=== PATIENT | female | born 1940 | race Caucasian/White ===

== ENCOUNTER 2018-02-07 10:54 | Inpatient (IN) ==
[2018-02-07] MEDS ORDERED: Sod Chloride 0.9% Inj 1,000 ML IV.CONT SCH (11:45)
[2018-02-07 12:04] LABS: Baso % (Auto) 0.2 % (0.0-2.0); Eos # (Auto) 0.2 th/mm3 (0.0-0.4); Eos % (Auto) 0.8 % (0.0-4.0); Hematocrit 35.6 % (35.0-46.0); Hemoglobin 11.6 gm/dL (11.6-15.3); Lymph # (Auto) 2.3 th/mm3 (1.0-4.8); Lymph % (Auto) 11.8 % (9.0-44.0); Mean Corpuscular HGB Conc 32.7 % (32.0-36.0); Mean Corpuscular Volume 82.5 fL (80.0-100.0); Mean Platelet Volume 8.4 fL (7.0-11.0); Mono # (Auto) 1.2 th/mm3 (0.0-0.9); Neut # (Auto) 15.9 th/mm3 (1.8-7.7); Neut % (Auto) 81.2 % (16.0-70.0); Platelet Count 273 th/mm3 (150-450); Red Blood Count 4.31 mil/mm3 (4.00-5.30); Red Cell Distribution Width 14.2 % (11.6-17.2); White Blood Count 19.6 th/mm3 (4.0-11.0)
[2018-02-07 12:17] LABS: Activated Partial Thrombo Time 28.1 sec (24.3-30.1); INR 1.1 Ratio; Prothrombin Time 11.3 sec (9.8-11.6)
[2018-02-07 12:37] LABS: Albumin 3.3 g/dL (3.4-5.0); Anion Gap 8 meq/L (5-15); Aspartate Aminotransferase 56 U/L (15-37); Blood Urea Nitrogen 33 mg/dL (7-18); Calcium 8.7 mg/dL (8.5-10.1); Carbon Dioxide 27.8 meq/L (21.0-32.0); Chloride 102 meq/L (98-107); Glomerular Filtration Rate 21 mL/min (>89); Glucose,Random 95 mg/dL (74-106); Potassium 4.4 meq/L (3.5-5.1); Sodium 138 meq/L (136-145)
[2018-02-07 12:38] LABS: Alanine Aminotransferase 27 U/L (10-53)
--- NOTE | 2018-02-07 12:51 | CT ---
EXAM DATE: 02/07/2018 12:41 PM EDT AGE/SEX: 78 years / Female INDICATIONS: Fall today, pain and some neuro deficits CLINICAL DATA: This is the patient's initial encounter. Patient reports that signs and symptoms have been present for 1 day and indicates a pain score of 6/10. MEDICAL/SURGICAL HISTORY: None. . cervical spine RADIATION DOSE: 56.35 CTDI (mGy) COMPARISON: No prior exams available for comparison. TECHNIQUE: CT of the head without contrast. Using automated exposure control and adjustment of the mA and/or kV according to patient size, radiation dose was kept as low as reasonably achievable to ob tain optimal diagnostic quality images. DICOM format image data is available electronically for revi ew and comparison. FINDINGS: Cerebrum: The ventricles are normal for age. There is mild decreased density in the cerebral white matter. No evidence of midline shift, mass lesion, hemorrhage or acute infarction. No extraaxial flu id collections are seen. Posterior Fossa: The cerebellum and brainstem are intact. The 4th ventricle is midline. The cerebe llopontine angle is unremarkable. Extracranial: The visualized portion of the orbits is intact. Skull: The calvaria is intact. No evidence of skull fracture. CONCLUSION: 1. No acute abnormality is seen. 2. Mild decreased density in the periventricular white matter likely secondary to small vessel ische bhupinder change. . Electronically signed by: Fer Miarnda MD 02/07/2018 12:49 PM EDT
[2018-02-07 12:52] LABS: Alkaline Phosphatase 104 U/L (45-117); Creatine Kinase 1915 U/L (26-192); Total Protein 6.8 g/dL (6.4-8.2)
[2018-02-07 13:05] LABS: CKMB Percent 1.4 % (0.0-4.0); Creatine Kinase MB 27.5 ng/mL (0.5-3.6)
[2018-02-07] MEDS ORDERED: Sodium Chlor 0.9% Inj 500 ML IV.SIG ONE (13:14)
--- NOTE | 2018-02-07 13:18 | XR ---
EXAM DATE: 02/07/2018 1:14 PM EDT AGE/SEX: 78 years / Female INDICATIONS: Cough. CLINICAL DATA: This is the patient's initial encounter. Patient reports that signs and symptoms have been present for 1 day and indicates a pain score of 2/10. MEDICAL/SURGICAL HISTORY: None. None. COMPARISON: No prior exams available for comparison. FINDINGS: Cardiomegaly. No consolidation. ACDF hardware overlies the cervical spine. No effusion. There is a po ssibly cavitary lesion in the left lung base measuring 3.2 cm in transverse dimension. CONCLUSION: Left lung nodule possibly cavitary. CT chest recommended. Electronically signed by: Tejas Crook MD 02/07/2018 1:16 PM EDT
--- NOTE | 2018-02-07 13:19 | CT ---
EXAM DATE: 02/07/2018 1:04 PM EDT AGE/SEX: 78 years / Female INDICATIONS: Fall today,pain,neuro deficits CLINICAL DATA: This is the patient's initial encounter. Patient reports that signs and symptoms have been present for 1 day and indicates a pain score of 6/10. MEDICAL/SURGICAL HISTORY: . degenerative disc disease . cervical spine RADIATION DOSE: 19.98 CTDI (mGy) COMPARISON: No prior exams available for comparison. TECHNIQUE: Contiguous axial images were obtained using helical multirow detector technique. The vol umetric data was post-processed with multiplanar reconstruction in oblique axial, sagittal, and coron al planes. Using automated exposure control and adjustment of the mA and/or kV according to patient s ize, radiation dose was kept as low as reasonably achievable to obtain optimal diagnostic quality sue ges. DICOM format image data is available electronically for review and comparison. FINDINGS: Sagittal and coronal reformats are provided. These demonstrate previous anterior cervical fusion from C5 down to T1. The fusion appears solid. The plate is intact. There are severe degenerative changes at C2/3, C3/4 and C4/5. The overall alignment of the cervical spine is adequate. No definite fracture is seen. C1-2: There are moderate degenerative changes in the atlantodens joint. No acute fractures seen. C2-3: There is a degenerated disc with mild osteophytic ridging. The thecal space is adequate. There is mild bony foraminal narrowing on the left. This is predominantly from the osteophytic ridging of t he vertebral endplates and degenerative facet arthritis. The foraminal on the right appears adequate. C3-4 There is a degenerated disc. There is broad-based disc bulge and extensive osteophytic ridging. This effaces the ventral thecal sac. There is mild bony foraminal narrowing as well. There is mild fa cet arthritis bilaterally. C4-5: There is moderate osteophytic ridging and advanced facet arthritis bilaterally. This results in mild narrowing of the thecal sac and mild bilateral bony foraminal narrowing. C5-6: This level is fused. The thecal space is adequate. There is moderate bony foraminal narrowing b ilaterally. C6-7: This level is fused. The thecal space and foramina appear adequate. C7-T1: This level is fused. The thecal space and foramina appear adequate CONCLUSION: 1. The patient is fused from C5 down to T1. The fusion is solid. 2. Severe degenerative changes at C2/3, C3/4 and C4/5. 3. Moderate degenerative changes in the atlantodens joint. 4. No acute cervical fracture identified. Electronically signed by: Dave Walter MD 02/07/2018 1:17 PM EDT
[2018-02-07 13:48] LABS: Bacteria,Urine Occasional /hpf; Bilirubin,Urine Negative (Negative); Clarity,Urine Hazy (Clear); Color,Urine Yellow (Yellw/Straw); Glucose,Urine (UA) Negative (Negative); Hyaline Casts,Urine 19 /lpf (0-3); Leukocyte Esterase,Urine Negative (Negative); Nitrite,Urine Negative (Negative); Specific Gravity,Urine 1.013 (1.002-1.035); Squamous Epithelial Cell,Urine <1 /hpf (0-5)
[2018-02-07] MEDS: Sod Chloride 0.9% Inj 1,000 ML IV.CONT SCH (14:04)
--- NOTE | 2018-02-07 15:29 | ED ---
HPI General Chief Complaint: Neuro Symptoms/Deficit Stated Complaint: medical Time Seen by Provider: 02/07/18 11:31 History of Present Illness HPI Narrative: This is a 78-year-old female with history of cervical spine disease, who presents here today after experiencing left-sided facial droop, left upper and left lower extremity weakness starting at noon yesterday. According to the paramedics and the patient, she started experiencing a headache followed by the neuro symptoms. Noon yesterday. She reportedly fell and struck her head and passed out. Patient reports pain still at the top of her head. She reports difficulty swallowing as well as slurred speech. She also reports weakness in her left upper and left lower extremity. Patient reports pain in her left arm that she describes as an electrical type pain. She denies any urinary incontinence. The patient does report that a couple years ago she had a TIA. When asked if they were able to find the cause, she was unable to tell me. She is certainly out of the window for TPA. She is still symptomatic and therefore a CVA workup will be initiated. Related Data Home Medications Medication Instructions Recorded Confirmed morphine 15 mg PO Q12H 02/07/18 02/07/18 sertraline 100 mg PO DAILY 02/07/18 02/07/18 Allergies Allergy/AdvReac Type Severity Reaction Status Date / Time latex Allergy Severe Rash Verified 02/07/18 11:11 acyclovir Allergy Mild RASH Verified 02/07/18 11:11 bacitracin Allergy Mild RASH Verified 02/07/18 11:11 gramicidin D Allergy Mild RASH Verified 02/07/18 11:11 neomycin Allergy Mild RASH Verified 02/07/18 11:11 polymyxin B Allergy Mild RASH Verified 02/07/18 11:11 Review of Systems Except as stated in HPI: all other systems reviewed are negative Constitutional Denies chills and Denies fever(s) Eyes Denies blurry vision, Denies diplopia, Denies loss of peripheral vision and Denies loss of vision ENT Reports dysphagia and Reports other (Left facial droop) Cardiovascular Denies chest pain and Denies dyspnea Respiratory Denies chest congestion, Denies cough and Denies dyspnea on exertion Gastrointestinal Denies abdominal pain, Denies nausea and Denies vomiting Genitourinary Denies urinary frequency, Denies dysuria and Denies urinary incontinence Musculoskeletal Reports neck pain (Chronic) and Reports other (Chronic neck pain) Integumentary/Breasts Reports system reviewed and no additional complaints, except [facility] Neurologic Reports abnormal speech, Reports headache(s), Reports focal weakness (Left upper and left lower) and Denies seizure-like activity Psychiatric Reports system reviewed and no additional complaints, except as [facility] Medical History Medical History Chronic back pain (Acute) Degenerative disc disease, cervical (Acute) Frequent UTI (Acute) Surgical History Surgical History History of back surgery (Acute) History of cholecystectomy (Acute) Hx of fusion of cervical spine (Acute) Social History Social History Substance History: No History of Abuse Smoking Status: Never smoker How Often Do You Have a Drink Containing Alcohol: Never Recent Travel in [facility] within the Last 8 Weeks: No Recent Out of Country Travel within the Last 8 Weeks: No Immunization History Tetanus Immunization: Unsure Hx Influenza Vaccine This Season: Unable to Assess Exam Narrative Exam Narrative: GENERAL: Well-developed well-nourished female in c-collar immobilization. SKIN: Focused skin assessment warm/dry. HEAD: Atraumatic. Normocephalic. EYES: Pupils equal and round. No scleral icterus. No injection or drainage. ENT: No nasal bleeding or discharge. Mucous membranes pink and moist. NECK: Trachea midline. In c-collar mobilization. CARDIOVASCULAR: Regular rate and rhythm. No murmur appreciated. RESPIRATORY: No accessory muscle use. Clear to auscultation. Breath sounds equal bilaterally. GASTROINTESTINAL: Abdomen soft, non-tender, nondistended. MUSCULOSKELETAL: No obvious deformities. No clubbing. No cyanosis. No edema. NEUROLOGICAL: Awake and alert. Positive slurred speech. Left-sided upper and lower facial droop. 3/4 out of 5 left upper extremity strength. 4 out of 5 left lower extremity strength. No downgoing Babinski's. Right upper and right lower extremity was 5 out of 5 strength. Course Initial Documented Vital Signs Pulse Rate 88 02/07/18 10:56 Respiratory Rate 18 02/07/18 10:56 Blood Pressure 113/78 02/07/18 10:56 Pulse Oximetry 97 02/07/18 10:56 Last Documented Vital Signs Pulse Rate 90 02/07/18 14:30 Respiratory Rate 18 02/07/18 14:30 Blood Pressure 135/74 02/07/18 14:30 Pulse Oximetry 97 07/30/18 14:30 Medical Decision Making [facility] Narrative Medical decision making narrative: 78-year-old female with history of cervical spine disease, previous fusion, presents after having an episode yesterday at noon of headache followed by left-sided facial droop, dysarthria, left upper and left lower extremity weakness. The patient reportedly fell and struck her head. There was loss of consciousness. CT of the brain shows no evidence of acute intracranial abnormalities. Patient's creatinine is elevated above 2. She has no reported history of kidney insufficiency. Patient's chest x-ray also shows a left lower lung cavitary lesion. The patient states that she smoked in her early years however has not had any tobacco use in several years. The [facility] above [facility]. The patient will be placed on telemetry floor. MRI of the brain is pending at this time. Differential Diagnosis Differential Diagnosis: CVA versus radiculopathy versus metabolic derangement versus pulmonary infection versus neoplastic process. Lab Data Result diagrams: 02/07/18 11:47 02/07/18 11:47 Lab Results 02/07/18 02/07/18 02/07/18 Range/Units 11:47 11:47 11:47 WBC 19.6 H (4.0-11.0) th/mm3 RBC 4.31 (4.00-5.30) mil/mm3 Hgb 11.6 (11.6-15.3) gm/dL Hct 35.6 (35.0-46.0) % MCV 82.5 (80.0-100.0) fL MCH 27.0 (27.0-34.0) pg MCHC 32.7 (32.0-36.0) % RDW 14.2 (11.6-17.2) % Plt Count 273 (150-450) th/mm3 MPV 8.4 (7.0-11.0) fL Neut % (Auto) 81.2 H (16.0-70.0) % Lymph % (Auto) 11.8 (9.0-44.0) % [place] % (Auto) 6.0 (0.0-8.0) % Eos % (Auto) 0.8 (0.0-4.0) % Baso % (Auto) 0.2 (0.0-2.0) % Neut # (Auto) 15.9 H (1.8-7.7) th/mm3 Lymph # (Auto) 2.3 (1.0-4.8) th/mm3 [place] # (Auto) 1.2 H (0.0-0.9) th/mm3 Eos # (Auto) 0.2 (0.0-0.4) th/mm3 Baso # (Auto) 0.0 (0.0-0.2) th/mm3 WBC Differential . Differential Comment Auto diff final PT 11.3 (9.8-11.6) sec INR 1.1 Ratio APTT 28.1 (24.3-30.1) sec Sodium 138 (136-145) meq/L Potassium 4.4 (3.5-5.1) meq/L Chloride 102 (98-107) meq/L Carbon Dioxide 27.8 (21.0-32.0) meq/L Anion Gap 8 (5-15) meq/L BUN 33 H (7-18) mg/dL Creatinine 2.27 H (0.50-1.00) mg/dL Estimated GFR 21 L (>89) mL/min Random Glucose 95 (74-106) mg/dL Calcium 8.7 (8.5-10.1) mg/dL Total Bilirubin 0.4 (0.2-1.0) mg/dL AST 56 H (15-37) U/L ALT 27 (10-53) U/L Alkaline Phosphatase 104 (45-117) U/L Total Creatine Kinase 1915 H (26-192) U/L CK-MB (CK-2) 27.5 H (0.5-3.6) ng/mL CK-MB (CK-2) % 1.4 (0.0-4.0) % Troponin I Less than 0.02 L (0.02-0.05) ng/mL Total Protein 6.8 (6.4-8.2) g/dL Albumin 3.3 L (3.4-5.0) g/dL Urine Color (Yellw/Straw) Urine Clarity (Clear) Urine pH (5.0-8.5) Ur Specific [place] (1.002-1.035) Urine Protein (Neg-Trace) mg/dL Urine Glucose (UA) (Negative) mg/dL Urine Ketones (Negative) mg/dL Urine Occult Blood (Negative) Urine Nitrate (Negative) Urine Bilirubin (Negative) Urine Urobilinogen (Less than 2) mg/dL Ur Leukocyte Esterase (Negative) Urine RBC (0-3) /hpf Urine WBC (0-5) /hpf Ur Squamous Epith Cells (0-5) /hpf Urine Bacteria (None) /hpf Hyaline Casts (0-3) /lpf Micro UA Comment Urine Culture Comments Blood Type Blood Type Recheck Antibody Screen 02/07/18 02/07/18 Range/Units 11:47 13:17 WBC (4.0-11.0) th/mm3 RBC (4.00-5.30) mil/mm3 Hgb (11.6-15.3) gm/dL Hct (35.0-46.0) % MCV (80.0-100.0) fL MCH (27.0-34.0) pg MCHC (32.0-36.0) % RDW (11.6-17.2) % Plt Count (150-450) th/mm3 MPV (7.0-11.0) fL Neut % (Auto) (16.0-70.0) % Lymph % (Auto) (9.0-44.0) % [place] % (Auto) (0.0-8.0) % Eos % (Auto) (0.0-4.0) % Baso % (Auto) (0.0-2.0) % Neut # (Auto) (1.8-7.7) th/mm3 Lymph # (Auto) (1.0-4.8) th/mm3 [place] # (Auto) (0.0-0.9) th/mm3 Eos # (Auto) (0.0-0.4) th/mm3 Baso # (Auto) (0.0-0.2) th/mm3 WBC Differential Differential Comment PT (9.8-11.6) sec INR Ratio APTT (24.3-30.1) sec Sodium (136-145) meq/L Potassium (3.5-5.1) meq/L Chloride (98-107) meq/L Carbon Dioxide (21.0-32.0) meq/L Anion Gap (5-15) meq/L BUN (7-18) mg/dL Creatinine (0.50-1.00) mg/dL Estimated GFR (>89) mL/min Random Glucose (74-106) mg/dL Calcium (8.5-10.1) mg/dL Total Bilirubin (0.2-1.0) mg/dL AST (15-37) U/L ALT (10-53) U/L Alkaline Phosphatase (45-117) U/L Total Creatine Kinase (26-192) U/L CK-MB (CK-2) (0.5-3.6) ng/mL CK-MB (CK-2) % (0.0-4.0) % Troponin I (0.02-0.05) ng/mL Total Protein (6.4-8.2) g/dL Albumin (3.4-5.0) g/dL Urine Color Yellow (Yellw/Straw) Urine Clarity Hazy H (Clear) Urine pH 5.0 (5.0-8.5) Ur Specific [place] 1.013 (1.002-1.035) Urine Protein Negative (Neg-Trace) mg/dL Urine Glucose (UA) Negative (Negative) mg/dL Urine Ketones Negative (Negative) mg/dL Urine Occult Blood Small H (Negative) Urine Nitrate Negative (Negative) Urine Bilirubin Negative (Negative) Urine Urobilinogen Less than 2 (Less than 2) mg/dL Ur Leukocyte Esterase Negative (Negative) Urine RBC 1 (0-3) /hpf Urine WBC 1 (0-5) /hpf Ur Squamous Epith Cells <1 (0-5) /hpf Urine Bacteria Occasional H (None) /hpf Hyaline Casts 19 (0-3) /lpf Micro UA Comment Cath-culture ind Urine Culture Comments Cath-cult indicated Blood Type A Positive Blood Type Recheck Required Antibody Screen Negative Imaging Data Radiologist's impression: Cervical Spine CT 02/07/18 11:31 CONCLUSION: 1. The patient is fused from C5 down to T1. The fusion is solid. 2. Severe degenerative changes at C2/3, C3/4 and C4/5. 3. Moderate degenerative changes in the atlantodens joint. 4. No acute cervical fracture identified. Chest X-Ray 02/07/18 11:31 CONCLUSION: Left lung nodule possibly cavitary. CT chest recommended. Head CT 02/07/18 11:31 CONCLUSION: 1. No acute abnormality is seen. 2. Mild decreased density in the periventricular white matter likely secondary to small vessel ischemic change. . Discharge Plan Discharge Disposition Patient Disposition: 30 Still Patient Discharge Details Diagnosis: CVA (cerebrovascular accident), Cavitary lesion of lung, Kidney injury, Cervical spine disease Physicians Team ED Provider: Ramos Cantu Primary Care Provider: Sommer Trent Attending Provider: Anna Peacock Discharge Interventions Interventions: Vital Signs Last Done: 02/07/18 14:30 Status ED Status: Admitted Patient
--- NOTE | 2018-02-07 15:31 | MR ---
EXAM DATE: 02/07/2018 3:19 PM EDT AGE/SEX: 78 years / Female INDICATIONS: CVA. Right sided weakness. CLINICAL DATA: This is the patient's initial encounter. Patient reports that signs and symptoms have been present for 2 days and indicates a pain score of 3/10. MEDICAL/SURGICAL HISTORY: None. Fusion, cervical. Cholecystectomy. [place] [facility] [place]. . TECHNIQUE: Multiplanar, multisequence examination of the brain was performed without contrast. FINDINGS: Cerebrum: The ventricles are normal for age. No evidence of midline shift, mass lesion, hemorrhage or acute infarction. No extraaxial fluid collections are seen. The pituitary gland and suprasellar cistern are normal in configuration. White Matter: There are some punctate areas of increased T2 signal in the white matter most consiste nt with mild microvascular ischemic demyelinative change. No significant abnormal T2 signal is identi fied. Posterior Fossa: The cerebellum and brainstem are intact. The 4th ventricle is midline. The cerebel lopontine angle is unremarkable. The cerebellar tonsils are normal in position. Diffusion Imaging: No focal areas of restricted diffusion are seen. No evidence of acute infarction . Extracranial: The visualized portions of the orbits and paranasal sinuses are unremarkable. CONCLUSION: 1. There are some punctate areas of increased T2 signal in the white matter most consistent with mil d microvascular ischemic demyelinative change. No significant abnormal T2 signal is identified. 2. No findings to indicate acute cortical infarction are seen on the diffusion restricted imaging. Electronically signed by: Dave Walter MD 02/07/2018 3:30 PM EDT
[2018-02-07] MEDS ORDERED: Dextrose 50% in Water 50 ML Vial IV.PUSH PRN (18:12)
[2018-02-07] MEDS ORDERED: LORazepam 0.5 MG Tablet PO PRN (18:19)
[2018-02-07] MEDS ORDERED: Acetaminophen 325 MG Tablet PO PRN ×2 (18:21→18:22)
[2018-02-07] MEDS ORDERED: Bisacodyl 10 MG Supp RECTAL PRN (18:21)
[2018-02-07] MEDS ORDERED: Naloxone Inj 0.4 MG/ML Vial IV.PUSH PRN (18:22)
--- NOTE | 2018-02-07 18:35 | P.HP ---
History of Present Illness Primary Care Physician: Sommer Trent MD History of Present Illness: This is a 78-year-old female with a history of chronic neck and lower back pain , chronic dermatitis, constipation, fatigue and vitamin D deficiency. She was brought in by [facility] because of strokelike symptoms. History is taken from patient and her niece. She is having difficulty providing history because of expressive aphasia. It started 2 weeks ago when she fell and complained of increased neck and left arm pain. She was seen by her pain management physician and her morphine was increased. Since then she was noted having intermittent word finding difficulty and slurred speech. Yesterday she fell again and was unable to get up. She was found by her niece on the floor. She has chronic numbness of the left upper and left lower extremities. She had transient difficulty swallowing while she was wearing the cervical collar. At the time of my examination, she was able to drink water without difficulty. Denies appreciate any focal weakness. Stroke workup revealed head CT and head MRI without acute stroke but has mild microvascular ischemic demyelinating change. She also has acute kidney injury likely secondary to rhabdomyolysis and has been started on IV fluids. She also has leukocytosis and abnormal urinalysis and patient is complaining of urgency and chronic urinary incontinence. All other systems reviewed negative Inpatient Certification: I certify that the inpatient services were ordered in accordance with Medicare regulations governing the order. 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 - Medical History Medical History: Medical History (Last Reviewed 02/07/18 @ 14:37 by Rebecca Lujan RN) Chronic back pain Degenerative disc disease, cervical Frequent UTI - Surgical History Surgical History: Surgical History (Last Updated 02/07/18 @ 14:38 by Rebecca Lujan RN) History of back surgery History of cholecystectomy Hx of fusion of cervical spine - Family History Family History: Family History (Last Updated 02/07/18 @ 18:37 by Watson Wilkes MD) Other CVA (cerebral vascular accident) - Tobacco History Smoking Status: Never smoker - Alcohol History How Often Do You Have a Drink Containing Alcohol: Never - Substance Use History Substance History: No History of Abuse - Travel History Recent Travel in the [place] Within the Last 8 Weeks: No Recent Travel Out of the Country Within the Last 8 Weeks: No - Immunization History Tetanus Immunization: Unsure Hx Influenza Vaccine This Season: Unable to Assess Medications and Allergies Active Medications: Active Medications Aspirin (Aspirin) 325 mg PO DAILY [facility]IAN Cyclobenzaprine HCl (Flexeril) 10 mg PO TID PRN PRN Reason: Muscle Spasm Dextrose (D50w Vial) 50 ml IV.PUSH UNSCH PRN PRN Reason: PER HYPOGLYCEMIA PROTOCOL Glucagon (Glucagon Inj) 1 mg OTHER UNSCH PRN PRN Reason: for Hypoglycemia Protocol Heparin Sodium (Porcine) (Heparin Inj) 5,000 units SQ Q12H ELIAN Sodium Chloride (Ns Inj) 1,000 mls @ 70 mls/hr IV.CONT .[id number] ELIAN Stop: 02/08/18 02:02 Last Admin: 02/07/18 11:49 Dose: 70 mls/hr Sodium Chloride (Ns Inj) 1,000 mls @ 100 mls/hr IV.CONT .Q10H ELIAN Last Admin: 02/07/18 14:04 Dose: 100 mls/hr Ceftriaxone Sodium 1,000 mg/ (Sodium Chloride) 100 mls @ 200 mls/hr IV.SIG Q24H ELIAN Lorazepam (Ativan) 1 mg PO Q6HR PRN PRN Reason: Anxiety Non-Formulary Medication (Doxycycline Hyclate [Doxycycline Hyclate]) 50 mg PO BID [facility] Non-Formulary Medication (Gabapentin [Gabapentin]) 600 mg PO TID [facility] Non-Formulary Medication (Triamcinolone-Dimethicone [Triamcinolone-Dimethicone] ) 1 applic TOPICAL BID ELIAN Sertraline HCl (Zoloft) 100 mg PO BID [facility]IAN Sodium Chloride (Ns Flush) 2 ml IV.FLUSH PRN PRN PRN Reason: FLUSH AFTER USING IV ACCESS Sodium Chloride (Ns Flush) 2 ml IV.FLUSH BID ELIAN Sodium Chloride (Ns Flush) 2 ml IV.FLUSH PRN PRN PRN Reason: FLUSH AFTER USING IV ACCESS Allergies Allergy/AdvReac Type Severity Reaction Status Date / Time latex Allergy Severe Rash Verified 02/07/18 11:11 acyclovir Allergy Mild RASH Verified 02/07/18 11:11 bacitracin Allergy Mild RASH Verified 02/07/18 11:11 gramicidin D Allergy Mild RASH Verified 02/07/18 11:11 neomycin Allergy Mild RASH Verified 02/07/18 11:11 polymyxin B Allergy Mild RASH Verified 02/07/18 11:11 Home Medications Medication Instructions Recorded Confirmed Type cyclobenzaprine 10 mg PO TID PRN 02/07/18 02/07/18 History docusate sodium 100 mg PO DAILY 02/07/18 02/07/18 History doxycycline hyclate 50 mg PO BID 02/07/18 02/07/18 History gabapentin 600 mg PO TID 02/07/18 02/07/18 History lorazepam [Ativan] 1 mg PO Q6HR PRN 02/07/18 02/07/18 History morphine 30 mg PO Q12H 02/07/18 02/07/18 History ondansetron 4 mg PO BID PRN 02/07/18 02/07/18 History sertraline 100 mg PO BID 02/07/18 02/07/18 History triamcinolone-dimethicone 1 applic TOPICAL BID 02/07/18 02/07/18 History Exam Vital signs: Vital Signs 02/07/18 10:56 02/07/18 11:02 02/07/18 11:49 Pulse Rate 88 88 87 Respiratory Rate 18 18 Blood Pressure 113/78 113/78 Pulse Oximetry 97 97 94 L 02/07/18 12:49 02/07/18 14:30 02/07/18 17:00 Pulse Rate 88 90 81 Respiratory Rate 16 18 16 Blood Pressure 122/58 L 135/74 119/58 L Pulse Oximetry 93 L 97 97 Intake & Output 02/06/18 02/07/18 02/07/18 18:59 06:59 18:59 Intake Total 500 / 500 Balance 500 / 500 Weight 73.482 kg Intake: IV 500 / 500 NS Inj 500 ML @ Wide Open IV. 500 / 500 SIG BOLUS ONE Rx#:[id number] Narrative: GENERAL: Well-developed and well-nourished in no distress SKIN: Warm and dry. HEAD: Atraumatic. Normocephalic. EYES: Pupils equal and round. No scleral icterus. No injection or drainage. ENT: No nasal bleeding or discharge. Mucous membranes pink and moist. NECK: Trachea midline. No JVD. CARDIOVASCULAR: Regular rate and rhythm. RESPIRATORY: No accessory muscle use. Clear to auscultation. Breath sounds equal bilaterally. GASTROINTESTINAL: Abdomen soft, non-tender, nondistended. MUSCULOSKELETAL: Extremities without clubbing, cyanosis, or edema. No obvious deformities. Tender mid thoracic spine NEUROLOGICAL: Awake and alert. No obvious cranial nerve deficits. Motor grossly within normal limits. Five out of 5 muscle strength in the arms and legs. Normal speech. Results - Labs CBC & Chem 7: 02/07/18 11:47 02/07/18 11:47 Labs: Laboratory Results - last 24 hr 02/07/18 02/07/18 02/07/18 11:47 11:47 11:47 WBC 19.6 H RBC 4.31 Hgb 11.6 Hct 35.6 MCV 82.5 MCH 27.0 MCHC 32.7 RDW 14.2 Plt Count 273 MPV 8.4 Neut % (Auto) 81.2 H Lymph % (Auto) 11.8 [place] % (Auto) 6.0 Eos % (Auto) 0.8 Baso % (Auto) 0.2 Neut # (Auto) 15.9 H Lymph # (Auto) 2.3 [place] # (Auto) 1.2 H Eos # (Auto) 0.2 Baso # (Auto) 0.0 WBC Differential . Differential Comment Auto diff final PT 11.3 INR 1.1 APTT 28.1 Sodium 138 Potassium 4.4 Chloride 102 Carbon Dioxide 27.8 Anion Gap 8 BUN 33 H Creatinine 2.27 H Estimated GFR 21 L Random Glucose 95 Calcium 8.7 Total Bilirubin 0.4 AST 56 H ALT 27 Alkaline Phosphatase 104 Total Creatine Kinase 1915 H CK-MB (CK-2) 27.5 H CK-MB (CK-2) % 1.4 Troponin I Less than 0.02 L Total Protein 6.8 Albumin 3.3 L Urine Color Urine Clarity Urine pH Ur Specific [place] Urine Protein Urine Glucose (UA) Urine Ketones Urine Occult Blood Urine Nitrate Urine Bilirubin Urine Urobilinogen Ur Leukocyte Esterase Urine RBC Urine WBC Ur Squamous Epith Cells Urine Bacteria Hyaline Casts Micro UA Comment Urine Culture Comments Blood Type Blood Type Recheck Antibody Screen 02/07/18 02/07/18 11:47 13:17 WBC RBC Hgb Hct MCV MCH MCHC RDW Plt Count MPV Neut % (Auto) Lymph % (Auto) [place] % (Auto) Eos % (Auto) Baso % (Auto) Neut # (Auto) Lymph # (Auto) [place] # (Auto) Eos # (Auto) Baso # (Auto) WBC Differential Differential Comment PT INR APTT Sodium Potassium Chloride Carbon Dioxide Anion Gap BUN Creatinine Estimated GFR Random Glucose Calcium Total Bilirubin AST ALT Alkaline Phosphatase Total Creatine Kinase CK-MB (CK-2) CK-MB (CK-2) % Troponin I Total Protein Albumin Urine Color Yellow Urine Clarity Hazy H Urine pH 5.0 Ur Specific [place] 1.013 Urine Protein Negative Urine Glucose (UA) Negative Urine Ketones Negative Urine Occult Blood Small H Urine Nitrate Negative Urine Bilirubin Negative Urine Urobilinogen Less than 2 Ur Leukocyte Esterase Negative Urine RBC 1 Urine WBC 1 Ur Squamous Epith Cells <1 Urine Bacteria Occasional H Hyaline Casts 19 Micro UA Comment Cath-culture ind Urine Culture Comments Cath-cult indicated Blood Type A Positive Blood Type Recheck Required Antibody Screen Negative - Imaging Impressions Cervical Spine CT 02/07/18 11:31 CONCLUSION: 1. The patient is fused from C5 down to T1. The fusion is solid. 2. Severe degenerative changes at C2/3, C3/4 and C4/5. 3. Moderate degenerative changes in the atlantodens joint. 4. No acute cervical fracture identified. Chest X-Ray 02/07/18 11:31 CONCLUSION: Left lung nodule possibly cavitary. CT chest recommended. Head CT 02/07/18 11:31 CONCLUSION: 1. No acute abnormality is seen. 2. Mild decreased density in the periventricular white matter likely secondary to small vessel ischemic change. . Head MRI 02/07/18 13:18 CONCLUSION: 1. There are some punctate areas of increased T2 signal in the white matter most consistent with mild microvascular ischemic demyelinative change. No significant abnormal T2 signal is identified. 2. No findings to indicate acute cortical infarction are seen on the diffusion restricted imaging. Caprini VTE Risk Assessment Caprini VTE Risk Assessment: Moderate/High Risk (score >= 2) Caprini Risk Assessment Model: Point Value = 1 Point Value = 2 Point Value = 3 Point Value = 5 Age 41-60 Minor surgery BMI > 25 kg/m2 Swollen legs Varicose veins or History of unexplained or recurrent spontaneous Oral contraceptives or hormone replacement Sepsis (< 1 month) Serious lung disease, including pneumonia (< 1 month) Abnormal pulmonary function Acute myocardial infarction Congestive heart failure (< 1 month) History of inflammatory bowel disease Medical patient at bed rest Age 61-74 Arthroscopic surgery Major open surgery (> 45 min) Laparoscopic surgery (> 45 min) Malignancy Confined to bed (> 72 hours) Immobilizing plaster cast Central venous access Age >= 75 History of VTE Family history of VTE Factor V Leiden Prothrombin [id number] Lupus anticoagulant Anticardiolipin antibodies Elevated serum homocysteine Heparin-induced thrombocytopenia Other congenital or acquired thrombophilia Stroke (< 1 month) Elective arthroplasty Hip, pelvis, or leg fracture Acute spinal cord injury (< 1 month) Prophylaxis Regimen: Total Risk Factor Score Risk Level Prophylaxis Regimen 0-1 Low Early ambulation 2 Moderate Order ONE of the following: *Sequential Compression Device (SCD) *Heparin 5000 units SQ BID 3-4 Higher Order ONE of the following medications: *Heparin 5000 units SQ TID *Enoxaparin/Lovenox 40 mg SQ daily (WT < 150 kg, CrCl > 30 mL/min) *Enoxaparin/Lovenox 30 mg SQ daily (WT < 150 kg, CrCl > 10-29 mL/min) *Enoxaparin/Lovenox 30 mg SQ BID (WT < 150 kg, CrCl > 30 mL/min) AND/OR *Sequential Compression Device (SCD) 5 or more Highest Order ONE of the following medications: *Heparin 5000 units SQ TID (Preferred with Epidurals) *Enoxaparin/Lovenox 40 mg SQ daily (WT < 150 kg, CrCl > 30 mL/min) *Enoxaparin/Lovenox 30 mg SQ daily (WT < 150 kg, CrCl > 10-29 mL/min) *Enoxaparin/Lovenox 30 mg SQ BID (WT < 150 kg, CrCl > 30 mL/min) AND *Sequential Compression Device (SCD) Assessment and Plan - Plan This is a 78-year-old female with a history of chronic neck and lower back pain , chronic dermatitis, constipation, fatigue and vitamin D deficiency. She was brought in by [facility] because of strokelike symptoms. Intermittent expressive aphasia and slurred speech with falls. Stroke workup revealed head CT and head MRI without acute stroke but has mild microvascular ischemic demyelinating change. EKG tracing interpreted by me with sinus rhythm. This could be multifactorial. Differential diagnosis: TIA versus medication effect (morphine) versus metabolic encephalopathy versus infection. Start aspirin, neurochecks, telemetry monitoring and stroke workup which will include echocardiogram and carotid ultrasound. Consult neurology, PT, OT and ST Acute on chronic neck pain with left upper extremity radiculopathy. Cervical spine CT without acute findings. Restart Flexeril and continue pain management with Lortab and IV morphine as needed. Will hold scheduled MS Contin secondary to above. Acute kidney injury likely secondary to rhabdomyolysis and NSAID use. Nonoliguric. Continue IV hydration and avoid nephrotoxins UTI suspected sepsis. Start Rocephin and follow culture Pulmonary nodule. Obtain chest CT which should also evaluate the thoracic spine as she has mid thoracic spine tenderness DVT prophylaxis with SCD and subcu heparin Discussed Condition With: pt and niece Discharge Planning: HHC vs rehab
[2018-02-07] MEDS: Aspirin 325 MG Tablet PO SCH (18:46)
--- NOTE | 2018-02-07 19:32 | CT ---
EXAM DATE: 02/07/2018 7:20 PM EDT AGE/SEX: 78 years / Female INDICATIONS: Abnormal chest X-ray. CLINICAL DATA: This is the patient's initial encounter. Patient reports that signs and symptoms have been present for 1 day and indicates a pain score of 0/10. MEDICAL/SURGICAL HISTORY: . Degenerative disc disease Cholecystectomy. Fusion, cervical. RADIATION DOSE: 12.59 CTDI (mGy) COMPARISON: No prior exams available for comparison. TECHNIQUE: Multiple contiguous axial images were obtained through the chest without contrast. Image s were obtained in suspended respiration using multiple row detector helical technique. Using automa kelsie exposure control and adjustment of the mA and/or kV according to patient size, radiation dose was kept as low as reasonably achievable to obtain optimal diagnostic quality images. DICOM format imag e data is available electronically for review and comparison. FINDINGS: There is focal consolidation in the lingula which correlates with the chest radiographic finding. The re is no cavitation or evidence for lung abscess. Right lung is relatively clear. No pleural or pericardial effusion. Moderate degenerative disc diseas e in the thoracic spine. There is likely an esophageal motility disorder present with air-fluid level noted in the esophagus w hich is mildly dilated Upper abdomen reveals a suspected 2.8 x 1.8 cm cyst in the dome of the liver. No acute findings in th e upper abdomen. Previous cholecystectomy. CONCLUSION: 1. Focal lingular segment consolidation. Differential diagnosis includes focal pneumonia or aspirati on. 2. Esophageal motility disorder with mild dilatation and air-fluid level present. 3. Mild coronary calcifications. Electronically signed by: Cesar Byrd MD 02/07/2018 7:30 PM EDT
[2018-02-07] MEDS ORDERED: DOXYCYCLINE HYCLATE 50 MG PO SCH (21:00)
[2018-02-07] MEDS: Heparin - SQ 10,000 UNITS/ML Vial SQ SCH (21:43)
[2018-02-07] MEDS: Senna/Docusate Sodium 8.6/50 MG Tablet PO SCH (21:44)
[2018-02-07] MEDS: Sertraline 100 MG Tablet PO SCH (21:44)
[2018-02-07] MEDS: DIMETHICONE TOPICAL SCH (21:59)
[2018-02-07] MEDS: TRIAMCINOLONE TOPICAL SCH (21:59)
[2018-02-07] MEDS ORDERED: Morphine Sulfate 15 MG IR Tablet PO ONE (22:00)
[2018-02-07] MEDS ORDERED: Gabapentin 300 MG Capsule PO ONE (22:00)
--- NOTE | 2018-02-07 23:06 | US ---
EXAM DATE: 02/07/2018 10:23 PM EDT AGE/SEX: 78 years / Female INDICATIONS: Syncope. CLINICAL DATA: This is the patient's initial encounter. Patient reports that signs and symptoms have been present for 3 days and indicates a pain score of 0/10. MEDICAL/SURGICAL HISTORY: . Degenerative disc disease, cervical. Frequent urinary tract infecti ons. Cholecystectomy. Fusion of cervical spine. COMPARISON: No prior exams available for comparison. VELOCITY PARAMETERS: ICA/CCA Ratio: Right 0.8 , Left 0.9 ICA: Right 94 cm/sec, Left 88 cm/sec CCA: Right 112 cm/sec, Left 94 cm/sec ECA: Right 117 cm/sec, Left 121 cm/sec Vertebral: Right 80 cm/sec antegrade, Left 87 cm/sec antegrade FINDINGS: Right Carotid: Mild arteriosclerotic plaque is visualized.The waveforms are within normal limits. Left Carotid: Mild arteriosclerotic plaque is visualized. The waveforms are within normal limits. Other: None. CONCLUSION: 1. Right Internal Carotid Artery: Mild visible plaque without hemodynamically significant stenosis. 2. Left Internal Carotid Artery: Mild visible plaque without hemodynamically significant stenosis. Electronically signed by: Cesar Byrd MD 02/07/2018 11:05 PM EDT
[2018-02-08] MEDS: Sod Chloride 0.9% Inj 1,000 ML IV.CONT SCH ×3 (00:15→22:27)
[2018-02-08] MEDS: Morphine Inj 4 MG/ML Vial IV.PUSH PRN ×2 (03:23→18:22)
[2018-02-08] MEDS: Aspirin 325 MG Tablet PO SCH (08:34)
[2018-02-08] MEDS: Senna/Docusate Sodium 8.6/50 MG Tablet PO SCH ×2 (08:34→22:23)
[2018-02-08] MEDS: Heparin - SQ 10,000 UNITS/ML Vial SQ SCH ×2 (08:34→22:22)
[2018-02-08] MEDS: Morphine Sulfate 15 MG IR Tablet PO SCH ×2 (08:34→22:23)
[2018-02-08] MEDS: Sertraline 100 MG Tablet PO SCH ×2 (08:35→22:23)
[2018-02-08] MEDS: Gabapentin 300 MG Capsule PO SCH ×3 (08:35→18:13)
[2018-02-08] MEDS: TRIAMCINOLONE TOPICAL SCH ×2 (08:36→22:27)
[2018-02-08] MEDS: DIMETHICONE TOPICAL SCH ×2 (08:36→22:27)
--- NOTE | 2018-02-08 08:45 | P.CONNEU ---
History of Present Illness Service: Neurology Primary Care Provider: Sommer Trent MD Chief Complaint: Fall, possible stroke History of Present Illness: 78-year-old female admitted for possible TIA. States she is on the phone with her niece and states her speech was off. She felt a little bit more off balance. States that out of fall not sure why no prodromal symptoms. She feels almost back to herself at present but feels her speech is a little bit off. She was found to have elevated creatinine kinase level and renal insufficiency. MRI brain scan did not show any acute stroke. Carotid ultrasound no significant vaso-occlusive disease. She lives alone states she has a son that lives up and allow it. Suffers from chronic cervical lumbar spinal pain. Goes to pain management received epidural steroid injections. She is on opiate medication with apparent recent increase in her morphine dose due to pain. She states she does not use any inhibitory device at baseline. Review of Systems All other systems reviewed negative except as stated in HPI PMFSH - History History Provided By: Cane Burner / EMT - Medical History Medical History: Medical History (Last Reviewed 02/08/18 @ 07:56 by Billy Connelly) Chronic back pain Degenerative disc disease, cervical Frequent UTI - Surgical History Surgical History: Surgical History (Last Reviewed 02/08/18 @ 07:56 by Billy Connelly) History of back surgery History of cholecystectomy Hx of fusion of cervical spine - Family History Family History: Family History (Last Reviewed 02/08/18 @ 07:56 by Billy Connelly) Other CVA (cerebral vascular accident) - Tobacco History Smoking Status: Never smoker - Alcohol History How Often Do You Have a Drink Containing Alcohol: Never - Substance Use History Substance History: No History of Abuse - Travel History Recent Travel in the [place] Within the Last 8 Weeks: No Recent Travel Out of the Country Within the Last 8 Weeks: No - Immunization History Tetanus Immunization: Unsure Hx Influenza Vaccine This Season: Unable to Assess Medications and Allergies Active Medications: Active Medications Acetaminophen (Tylenol) 650 mg PO Q4H PRN PRN Reason: Temp > 100.4 Acetaminophen (Tylenol) 650 mg PO Q6HR PRN PRN Reason: PAIN SCALE 1 TO 2 Aspirin (Aspirin) 325 mg PO DAILY [facility] Last Admin: 02/07/18 18:46 Dose: 325 mg Bisacodyl (Dulcolax Supp) 10 mg RECTAL DAILY PRN PRN Reason: SEVERE CONSITIPATION Cyclobenzaprine HCl (Flexeril) 10 mg PO TID PRN PRN Reason: Muscle Spasm Dextrose (D50w Vial) 50 ml IV.PUSH UNSCH PRN PRN Reason: PER HYPOGLYCEMIA PROTOCOL Doxycycline Hyclate (Vibramycin) 50 mg PO BID [facility] Last Admin: 02/07/18 22:14 Dose: 50 mg Gabapentin (Neurontin) 600 mg PO TID [facility] Glucagon (Glucagon Inj) 1 mg OTHER UNSCH PRN PRN Reason: for Hypoglycemia Protocol Heparin Sodium (Porcine) (Heparin Inj) 5,000 units SQ Q12H [facility] Last Admin: 02/07/18 21:43 Dose: 5,000 units Sodium Chloride (Ns Inj) 1,000 mls @ 100 mls/hr IV.CONT .Q10H [facility] Last Admin: 02/08/18 00:15 Dose: 100 mls/hr Ceftriaxone Sodium 1,000 mg/ (Sodium Chloride) 100 mls @ 200 mls/hr IV.SIG Q24H [facility] Last Infusion: 02/07/18 22:15 Dose: Infused Lactulose (Lactulose Liq) 30 ml PO DAILY PRN PRN Reason: SEVERE CONSITIPATION Lorazepam (Ativan) 1 mg PO Q6HR PRN PRN Reason: Anxiety Morphine Sulfate (Morphine Inj) 2 mg IV.PUSH Q3H PRN PRN Reason: BREAKTHROUGH PAIN Last Admin: 02/08/18 03:23 Dose: 2 mg Morphine Sulfate (Msir) 30 mg PO Q12HR [facility] Naloxone HCl (Narcan Inj) 0.4 mg IV.PUSH UNSCH PRN PRN Reason: SEE LABEL COMMENTS Ondansetron HCl (Zofran Odt) 4 mg PO Q6H PRN PRN Reason: NAUSEA OR VOMITING Pt:Triamcinolone/ (Dimethicone Cr) 0 each TOPICAL BID [facility] Last Admin: 02/07/18 21:59 Dose: Not Given Senna/Docusate Sodium ([place]-Colace) 1 tab PO BID [facility] Last Admin: 02/07/18 21:44 Dose: 1 tab Sennosides (Senokot) 17.2 mg PO Q12H PRN PRN Reason: Moderate Constipation Sertraline HCl (Zoloft) 100 mg PO BID [facility] Last Admin: 02/07/18 21:44 Dose: 100 mg Sodium Chloride (Ns Flush) 2 ml IV.FLUSH BID [facility] Last Admin: 02/07/18 22:15 Dose: Not Given Sodium Chloride (Ns Flush) 2 ml IV.FLUSH PRN PRN PRN Reason: FLUSH AFTER USING IV ACCESS Allergies Allergy/AdvReac Type Severity Reaction Status Date / Time latex Allergy Severe Rash Verified 02/07/18 11:11 acyclovir Allergy Mild RASH Verified 02/07/18 11:11 bacitracin Allergy Mild RASH Verified 02/07/18 11:11 gramicidin D Allergy Mild RASH Verified 02/07/18 11:11 neomycin Allergy Mild RASH Verified 02/07/18 11:11 polymyxin B Allergy Mild RASH Verified 02/07/18 11:11 Home Medications Medication Instructions Recorded Confirmed Type cyclobenzaprine 10 mg PO TID PRN 02/07/18 02/07/18 History docusate sodium 100 mg PO DAILY 02/07/18 02/07/18 History doxycycline hyclate 50 mg PO BID 02/07/18 02/07/18 History gabapentin 600 mg PO TID 02/07/18 02/07/18 History lorazepam [Ativan] 1 mg PO Q6HR PRN 02/07/18 02/07/18 History morphine 30 mg PO Q12H 02/07/18 02/07/18 History ondansetron 4 mg PO BID PRN 02/07/18 02/07/18 History sertraline 100 mg PO BID 02/07/18 02/07/18 History triamcinolone-dimethicone 1 applic TOPICAL BID 02/07/18 02/07/18 History Exam Vital signs: Vital Signs 02/07/18 10:56 02/07/18 11:02 02/07/18 11:49 Temperature Pulse Rate 88 88 87 Respiratory Rate 18 18 Blood Pressure 113/78 113/78 Pulse Oximetry 97 97 94 L 02/07/18 12:49 02/07/18 14:30 02/07/18 17:00 Temperature Pulse Rate 88 90 81 Respiratory Rate 16 18 16 Blood Pressure 122/58 L 135/74 119/58 L Pulse Oximetry 93 L 97 97 02/07/18 20:00 02/07/18 23:15 02/08/18 00:00 Temperature 97.6 F 97.7 F Pulse Rate 75 80 80 Respiratory Rate 18 18 Blood Pressure 139/63 121/59 L Pulse Oximetry 97 95 02/08/18 04:00 02/08/18 08:30 Temperature 97.6 F Pulse Rate 84 Respiratory Rate 18 Blood Pressure 130/60 Pulse Oximetry 96 93 L Intake & Output 02/07/18 02/08/18 02/08/18 18:59 06:59 18:59 Intake Total 500 / 500 2099 / 2100 Balance 500 / 500 2099 / 2100 Weight 73.482 kg 82.5 kg Intake: IV 500 / 500 2099 / 2100 NS Inj 1,000 ML @ 70 mls/hr IV. 1999 CONT .[id number] [facility] Rx#:[id number] NS Inj 500 ML @ Wide Open IV. 500 / 500 SIG BOLUS ONE Rx#:[id number] Rocephin Inj 1,000 MG In NS Inj 100 / 100 100 ML @ 200 mls/hr IV.SIG Q24H [facility] Rx#:[id number] Other: # Bowel Movements 1 Narrative: Head: Nontraumatic Neck: Supple, airway widely patent, no obstructive noises. Lungs: Generally clear with good bilateral air movement. Heart: Normal Abdomen: Soft, no guarding, Extremities: Warm, well-perfused, Neuro: Awake alert oriented 3 looks well speech is articulate although she feels that it is not at her baseline able to name repeat follow once the midline motor crossing request visual gamble full no facial asymmetry tongue midline able to raise all 4 extremities gravity however reduced range of motion in her left shoulder due to pain and arthritis gait not assessed secondary fall risk no neglect appreciated - Constitutional no acute distress - Routine HEENT Exam Head: Present: normocephalic Eye: Present: EOMI Results - Labs CBC & Chem 7: 02/07/18 11:47 02/07/18 11:47 Labs: Laboratory Results - last 24 hr 02/07/18 02/07/18 02/07/18 11:47 11:47 11:47 WBC 19.6 H RBC 4.31 Hgb 11.6 Hct 35.6 MCV 82.5 MCH 27.0 MCHC 32.7 RDW 14.2 Plt Count 273 MPV 8.4 Neut % (Auto) 81.2 H Lymph % (Auto) 11.8 [place] % (Auto) 6.0 Eos % (Auto) 0.8 Baso % (Auto) 0.2 Neut # (Auto) 15.9 H Lymph # (Auto) 2.3 [place] # (Auto) 1.2 H Eos # (Auto) 0.2 Baso # (Auto) 0.0 WBC Differential . Differential Comment Auto diff final PT 11.3 INR 1.1 APTT 28.1 Sodium 138 Potassium 4.4 Chloride 102 Carbon Dioxide 27.8 Anion Gap 8 BUN 33 H Creatinine 2.27 H Estimated GFR 21 L POC Glucose Random Glucose 95 Calcium 8.7 Total Bilirubin 0.4 AST 56 H ALT 27 Alkaline Phosphatase 104 Total Creatine Kinase 1915 H CK-MB (CK-2) 27.5 H CK-MB (CK-2) % 1.4 Troponin I Less than 0.02 L Total Protein 6.8 Albumin 3.3 L Urine Color Urine Clarity Urine pH Ur Specific [place] Urine Protein Urine Glucose (UA) Urine Ketones Urine Occult Blood Urine Nitrate Urine Bilirubin Urine Urobilinogen Ur Leukocyte Esterase Urine RBC Urine WBC Ur Squamous Epith Cells Urine Bacteria Hyaline Casts Micro UA Comment Urine Culture Comments Blood Type Blood Type Recheck Antibody Screen 02/07/18 02/07/18 02/08/18 11:47 13:17 07:46 WBC RBC Hgb Hct MCV MCH MCHC RDW Plt Count MPV Neut % (Auto) Lymph % (Auto) [place] % (Auto) Eos % (Auto) Baso % (Auto) Neut # (Auto) Lymph # (Auto) [place] # (Auto) Eos # (Auto) Baso # (Auto) WBC Differential Differential Comment PT INR APTT Sodium Potassium Chloride Carbon Dioxide Anion Gap BUN Creatinine Estimated GFR POC Glucose 94 Random Glucose Calcium Total Bilirubin AST ALT Alkaline Phosphatase Total Creatine Kinase CK-MB (CK-2) CK-MB (CK-2) % Troponin I Total Protein Albumin Urine Color Yellow Urine Clarity Hazy H Urine pH 5.0 Ur Specific [place] 1.013 Urine Protein Negative Urine Glucose (UA) Negative Urine Ketones Negative Urine Occult Blood Small H Urine Nitrate Negative Urine Bilirubin Negative Urine Urobilinogen Less than 2 Ur Leukocyte Esterase Negative Urine RBC 1 Urine WBC 1 Ur Squamous Epith Cells <1 Urine Bacteria Occasional H Hyaline Casts 19 Micro UA Comment Cath-culture ind Urine Culture Comments Cath-cult indicated Blood Type A Positive Blood Type Recheck Required Antibody Screen Negative - Imaging Impressions Carotid Doppler Study 02/07/18 00:00 CONCLUSION: 1. Right Internal Carotid Artery: Mild visible plaque without hemodynamically significant stenosis. 2. Left Internal Carotid Artery: Mild visible plaque without hemodynamically significant stenosis. Chest CT 02/07/18 00:00 CONCLUSION: 1. Focal lingular segment consolidation. Differential diagnosis includes focal pneumonia or aspiration. 2. Esophageal motility disorder with mild dilatation and air-fluid level present. 3. Mild coronary calcifications. Cervical Spine CT 02/07/18 11:31 CONCLUSION: 1. The patient is fused from C5 down to T1. The fusion is solid. 2. Severe degenerative changes at C2/3, C3/4 and C4/5. 3. Moderate degenerative changes in the atlantodens joint. 4. No acute cervical fracture identified. Chest X-Ray 02/07/18 11:31 CONCLUSION: Left lung nodule possibly cavitary. CT chest recommended. Head CT 02/07/18 11:31 CONCLUSION: 1. No acute abnormality is seen. 2. Mild decreased density in the periventricular white matter likely secondary to small vessel ischemic change. . Head MRI 02/07/18 13:18 CONCLUSION: 1. There are some punctate areas of increased T2 signal in the white matter most consistent with mild microvascular ischemic demyelinative change. No significant abnormal T2 signal is identified. 2. No findings to indicate acute cortical infarction are seen on the diffusion restricted imaging. Review/Management - Diagnosis (1) TIA (transient ischemic attack) Code(s): G45.9 - Transient cerebral ischemic attack, unspecified Status: Acute Current Visit: Yes (2) Chronic pain disorder Code(s): G89.4 - Chronic pain syndrome Status: Acute Current Visit: Yes (3) Kidney injury Code(s): S37.009A - Unspecified injury of unspecified kidney, initial encounter Status: Acute Current Visit: Yes (4) Cervical spine disease Code(s): M48.9 - Spondylopathy, unspecified Status: Acute Current Visit: Yes - Review/Management Plan: Not certain she had a TIA. Possibly related to increase use of opiate medication in combination with dehydration. Recommendations Aspirin Hydration PT evaluation MRI C-spine She should limit opiate use (1) TIA (transient ischemic attack) Qualifiers: Transient cerebral ischemia type: unspecified Qualified Code(s): G45.9 - Transient cerebral ischemic attack, unspecified (3) Kidney injury Qualifiers: Encounter type: initial encounter Laterality: unspecified laterality Qualified Code(s): S37.009A - Unspecified injury of unspecified kidney, initial encounter
--- NOTE | 2018-02-08 09:00 | ECG ---
Date Performed: 02/07/2018 Time Performed: 11:57:01 PTAGE: 78 years EKG: Sinus rhythm NONSPECIFIC T-WAVE ABNORMALITY BORDERLINE ECG PREVIOUS TRACING : 03/10/2002 17.06 Since the previous tracing, no significant change noted DOCTOR: Anjel Cordero Interpretating Date/Time 02/08/2018 08:59:11
[2018-02-08 09:20] LABS: Baso % (Auto) 0.3 % (0.0-2.0); Eos # (Auto) 0.4 th/mm3 (0.0-0.4); Eos % (Auto) 4.7 % (0.0-4.0); Hematocrit 32.7 % (35.0-46.0); Hemoglobin 10.9 gm/dL (11.6-15.3); Lymph # (Auto) 1.5 th/mm3 (1.0-4.8); Lymph % (Auto) 19.3 % (9.0-44.0); Mean Corpuscular HGB Conc 33.3 % (32.0-36.0); Mean Corpuscular Hemoglobin 27.6 pg (27.0-34.0); Mean Corpuscular Volume 82.8 fL (80.0-100.0); Mean Platelet Volume 8.2 fL (7.0-11.0); Mono # (Auto) 0.6 th/mm3 (0.0-0.9); Mono % (Auto) 7.7 % (0.0-8.0); Neut # (Auto) 5.2 th/mm3 (1.8-7.7); Platelet Count 229 th/mm3 (150-450); Red Blood Count 3.95 mil/mm3 (4.00-5.30); Red Cell Distribution Width 14.5 % (11.6-17.2); White Blood Count 7.6 th/mm3 (4.0-11.0)
[2018-02-08 09:48] LABS: Alanine Aminotransferase 27 U/L (10-53); Albumin 2.8 g/dL (3.4-5.0); Alkaline Phosphatase 96 U/L (45-117); Anion Gap 6 meq/L (5-15); Aspartate Aminotransferase 48 U/L (15-37); Blood Urea Nitrogen 17 mg/dL (7-18); Calcium 8.2 mg/dL (8.5-10.1); Chloride 109 meq/L (98-107); Chol/HDL Ratio 4.78 Ratio; Cholesterol 171 mg/dL (120-200); Creatine Kinase 971 U/L (26-192); Glomerular Filtration Rate 78 mL/min (>89); Glucose,Random 92 mg/dL (74-106); HDL Cholesterol 35.7 mg/dL (40.0-60.0); LDL Cholesterol,Calculated 100 mg/dL (0-99); Sodium 142 meq/L (136-145); Total Protein 6.1 g/dL (6.4-8.2); Triglycerides 179 mg/dL (42-150)
[2018-02-08 10:08] LABS: CKMB Percent 1.1 % (0.0-4.0); Creatine Kinase MB 10.3 ng/mL (0.5-3.6)
--- NOTE | 2018-02-08 10:49 | P.PN ---
Physical Exam Vital signs: Vital Signs 02/07/18 10:56 02/07/18 11:02 02/07/18 11:49 Temperature Pulse Rate 88 88 87 Respiratory Rate 18 18 Blood Pressure 113/78 113/78 Pulse Oximetry 97 97 94 L 02/07/18 12:49 02/07/18 14:30 02/07/18 17:00 Temperature Pulse Rate 88 90 81 Respiratory Rate 16 18 16 Blood Pressure 122/58 L 135/74 119/58 L Pulse Oximetry 93 L 97 97 02/07/18 20:00 02/07/18 23:15 02/08/18 00:00 Temperature 97.6 F 97.7 F Pulse Rate 75 80 80 Respiratory Rate 18 18 Blood Pressure 139/63 121/59 L Pulse Oximetry 97 95 02/08/18 04:00 02/08/18 08:00 02/08/18 08:30 Temperature 97.6 F 98.2 F Pulse Rate 84 72 Respiratory Rate 18 20 Blood Pressure 130/60 154/91 H Pulse Oximetry 96 97 93 L Intake & Output 02/07/18 02/08/18 02/08/18 18:59 06:59 18:59 Intake Total 500 / 500 2100 / 2100 Balance 500 / 500 2100 / 2100 Weight 73.482 kg 82.5 kg Intake: IV 500 / 500 2100 / 2100 NS Inj 1,000 ML @ 70 mls/hr IV. 1999 CONT .[id number] [facility] Rx#:[id number] NS Inj 500 ML @ Wide Open IV. 500 / 500 SIG BOLUS ONE Rx#:[id number] Rocephin Inj 1,000 MG In NS Inj 100 / 100 100 ML @ 200 mls/hr IV.SIG Q24H [facility] Rx#:[id number] Other: # Bowel Movements 1 Narrative: Subjective: Patient is in nad No fever or chills. No n/v/d/c. PT recommends PT at rehab however the patient says she walks with a walker No more dizziness. Feels much improved today. Physical Exam GENERAL: Pleasant 78 yo F, well-developed and well-nourished in not acute distress CARDIOVASCULAR: Regular rate and rhythm. RESPIRATORY: No accessory muscle use. Clear to auscultation. Breath sounds equal bilaterally. GASTROINTESTINAL: Abdomen soft, non-tender, nondistended. MUSCULOSKELETAL: Extremities without clubbing, cyanosis, or edema. No obvious deformities. Tender mid thoracic spine NEUROLOGICAL: Awake and alert. No obvious cranial nerve deficits. Motor grossly within normal limits. Five out of 5 muscle strength in the arms and legs. Normal speech. Assessment and Plan This is a 78-year-old female with a history of chronic neck and lower back pain , chronic dermatitis, constipation, fatigue and vitamin D deficiency. She was brought in by [facility] because of strokelike symptoms. Intermittent expressive aphasia and slurred speech with falls. Stroke workup revealed head CT and head MRI without acute stroke but has mild microvascular ischemic demyelinating change. EKG tracing interpreted by me with sinus rhythm. This could be multifactorial. Differential diagnosis: TIA versus medication effect (morphine) versus metabolic encephalopathy versus infection. Continue aspirin, neurochecks, telemetry monitoring and stroke workup which will include echocardiogram and carotid ultrasound. Consult neurology, appreciate recommendations. Limit PT, OT and ST MRI without acute changes Neuro recommends limiting narcotics and Benzos. Discussed with the patient and her niece at bedside. Patient has an appointment coming on this Wednesday with her pain management and she is on tapering down on meds by her pain management Dr already. Adviced to follow up as OP Acute on chronic neck pain with left upper extremity radiculopathy. Cervical spine CT without acute findings. Restart Flexeril and continue pain management with Lortab and IV morphine as needed. Will hold scheduled MS Contin secondary to above. Acute kidney injury likely secondary to rhabdomyolysis and NSAID use. Nonoliguric. Continue IV hydration and avoid nephrotoxins UTI suspected sepsis. Start Rocephin and follow culture Pulmonary nodule. Obtain chest CT which should also evaluate the thoracic spine as she has mid thoracic spine tenderness DVT prophylaxis with SCD and subcu heparin Discussed Condition With: pt and niece at bedside Discharge Planning: HHC vs rehab Poss [facility] tomorrow if improves and cleared by neuro Patient follows with pain management at [facility] who is also tapering down pain meds Results - Labs CBC & Chem 7: 02/08/18 08:27 02/08/18 08:27 Laboratory Results - last 24 hr 02/07/18 02/07/18 02/07/18 11:47 11:47 11:47 WBC 19.6 H RBC 4.31 Hgb 11.6 Hct 35.6 MCV 82.5 MCH 27.0 MCHC 32.7 RDW 14.2 Plt Count 273 MPV 8.4 Neut % (Auto) 81.2 H Lymph % (Auto) 11.8 [place] % (Auto) 6.0 Eos % (Auto) 0.8 Baso % (Auto) 0.2 Neut # (Auto) 15.9 H Lymph # (Auto) 2.3 [place] # (Auto) 1.2 H Eos # (Auto) 0.2 Baso # (Auto) 0.0 WBC Differential . Differential Comment Auto diff final PT 11.3 INR 1.1 APTT 28.1 Sodium 138 Potassium 4.4 Chloride 102 Carbon Dioxide 27.8 Anion Gap 8 BUN 33 H Creatinine 2.27 H Estimated GFR 21 L POC Glucose Random Glucose 95 Calcium 8.7 Total Bilirubin 0.4 AST 56 H ALT 27 Alkaline Phosphatase 104 Total Creatine Kinase 1915 H CK-MB (CK-2) 27.5 H CK-MB (CK-2) % 1.4 Troponin I Less than 0.02 L Total Protein 6.8 Albumin 3.3 L Triglycerides Cholesterol LDL Cholesterol, Calc HDL Cholesterol Cholesterol/HDL Ratio Urine Color Urine Clarity Urine pH Ur Specific [place] Urine Protein Urine Glucose (UA) Urine Ketones Urine Occult Blood Urine Nitrate Urine Bilirubin Urine Urobilinogen Ur Leukocyte Esterase Urine RBC Urine WBC Ur Squamous Epith Cells Urine Bacteria Hyaline Casts Micro UA Comment Urine Culture Comments Blood Type Blood Type Recheck Antibody Screen 02/07/18 02/07/18 02/08/18 11:47 13:17 07:46 WBC RBC Hgb Hct MCV MCH MCHC RDW Plt Count MPV Neut % (Auto) Lymph % (Auto) [place] % (Auto) Eos % (Auto) Baso % (Auto) Neut # (Auto) Lymph # (Auto) [place] # (Auto) Eos # (Auto) Baso # (Auto) WBC Differential Differential Comment PT INR APTT Sodium Potassium Chloride Carbon Dioxide Anion Gap BUN Creatinine Estimated GFR POC Glucose 94 Random Glucose Calcium Total Bilirubin AST ALT Alkaline Phosphatase Total Creatine Kinase CK-MB (CK-2) CK-MB (CK-2) % Troponin I Total Protein Albumin Triglycerides Cholesterol LDL Cholesterol, Calc HDL Cholesterol Cholesterol/HDL Ratio Urine Color Yellow Urine Clarity Hazy H Urine pH 5.0 Ur Specific [place] 1.013 Urine Protein Negative Urine Glucose (UA) Negative Urine Ketones Negative Urine Occult Blood Small H Urine Nitrate Negative Urine Bilirubin Negative Urine Urobilinogen Less than 2 Ur Leukocyte Esterase Negative Urine RBC 1 Urine WBC 1 Ur Squamous Epith Cells <1 Urine Bacteria Occasional H Hyaline Casts 19 Micro UA Comment Cath-culture ind Urine Culture Comments Cath-cult indicated Blood Type A Positive Blood Type Recheck Required Antibody Screen Negative 02/08/18 02/08/18 08:27 08:27 WBC 7.6 D RBC 3.95 L Hgb 10.9 L Hct 32.7 L MCV 82.8 MCH 27.6 MCHC 33.3 RDW 14.5 Plt Count 229 MPV 8.2 Neut % (Auto) 68.0 Lymph % (Auto) 19.3 [place] % (Auto) 7.7 Eos % (Auto) 4.7 H Baso % (Auto) 0.3 Neut # (Auto) 5.2 Lymph # (Auto) 1.5 [place] # (Auto) 0.6 Eos # (Auto) 0.4 Baso # (Auto) 0.0 WBC Differential . Differential Comment Auto diff final PT INR APTT Sodium 142 Potassium 4.0 Chloride 109 H Carbon Dioxide 27.0 Anion Gap 6 BUN 17 Creatinine 0.72 Estimated GFR 78 L POC Glucose Random Glucose 92 Calcium 8.2 L Total Bilirubin 0.3 AST 48 H ALT 27 Alkaline Phosphatase 96 Total Creatine Kinase 971 H CK-MB (CK-2) 10.3 H CK-MB (CK-2) % 1.1 Troponin I Total Protein 6.1 L D Albumin 2.8 L Triglycerides 179 H Cholesterol 171 LDL Cholesterol, Calc 100 H HDL Cholesterol 35.7 L Cholesterol/HDL Ratio 4.78 Urine Color Urine Clarity Urine pH Ur Specific [place] Urine Protein Urine Glucose (UA) Urine Ketones Urine Occult Blood Urine Nitrate Urine Bilirubin Urine Urobilinogen Ur Leukocyte Esterase Urine RBC Urine WBC Ur Squamous Epith Cells Urine Bacteria Hyaline Casts Micro UA Comment Urine Culture Comments Blood Type Blood Type Recheck Antibody Screen - Imaging Impressions Carotid Doppler Study 02/07/18 00:00 CONCLUSION: 1. Right Internal Carotid Artery: Mild visible plaque without hemodynamically significant stenosis. 2. Left Internal Carotid Artery: Mild visible plaque without hemodynamically significant stenosis. Chest CT 02/07/18 00:00 CONCLUSION: 1. Focal lingular segment consolidation. Differential diagnosis includes focal pneumonia or aspiration. 2. Esophageal motility disorder with mild dilatation and air-fluid level present. 3. Mild coronary calcifications. Cervical Spine CT 02/07/18 11:31 CONCLUSION: 1. The patient is fused from C5 down to T1. The fusion is solid. 2. Severe degenerative changes at C2/3, C3/4 and C4/5. 3. Moderate degenerative changes in the atlantodens joint. 4. No acute cervical fracture identified. Chest X-Ray 02/07/18 11:31 CONCLUSION: Left lung nodule possibly cavitary. CT chest recommended. Head CT 02/07/18 11:31 CONCLUSION: 1. No acute abnormality is seen. 2. Mild decreased density in the periventricular white matter likely secondary to small vessel ischemic change. . Head MRI 02/07/18 13:18 CONCLUSION: 1. There are some punctate areas of increased T2 signal in the white matter most consistent with mild microvascular ischemic demyelinative change. No significant abnormal T2 signal is identified. 2. No findings to indicate acute cortical infarction are seen on the diffusion restricted imaging.
--- NOTE | 2018-02-08 13:15 | MG ---
cc: Erica Hansen MD DATE OF : 1940 AGE: [id number] years old. EEG NUMBER: [id number] REQUESTING PHYSICIAN: MD Yanni ROOM: 1519. NOTE: Awake, drowsy, asleep with photic done. Constantly twitching every extremity during the study. States she has spasms since she fell. Here for left-sided facial droop, left upper and lower extremity weakness. MEDICATIONS: On aspirin, morphine, Zoloft and gabapentin. DESCRIPTION OF STUDY: There is some mild slowing predominantly of 5-6 Hz. Quite a bit of artifact from movement. EKG does look sinus. No appreciable epileptiform features with the jerking movements or muscle artifact. Photic stimulation does show mild driving response. IMPRESSION: Mild slowing of background consistent with a mild encephalopathic process without any evidence of any epileptiform features on this recording. Clinical correlation. Erica Hansen MD DF/BETTINA , 01:06 PM , 01:10 PM
--- NOTE | 2018-02-08 13:51 | MR ---
EXAM DATE: 02/08/2018 12:39 PM EDT AGE/SEX: 78 years / Female INDICATIONS: . Left sided numbness and tingling. CLINICAL DATA: This is the patient's initial encounter. Patient reports that signs and symptoms have been present for 3 days and indicates a pain score of 2/10. MEDICAL/SURGICAL HISTORY: . DDD. Frequents UTI's. Fusion, cervical. Cholecystectomy. COMPARISON: No prior exams available for comparison. TECHNIQUE: Multiplanar, multisequence MRI examination of the cervical spine was performed without co ntrast. FINDINGS: Sagittal images demonstrate normal vertebral body alignment and curvature. No focal areas of marrow r eplacement are identified. The craniocervical junction appears normal. The cord itself is normal in c aliber and signal intensity. Axial images were performed from C2-3 through C7-T1. There is anterior cervical fusion with a plate anteriorly from C5-C7. There is marginal osteophyte formation above the fusion at C2-C3 and C3-C4. Axial images are limited secondary to motion. C2-C3: There is mild diffuse annular bulge of the disc. The neural foramina are clear bilaterally. T here is no significant spinal canal stenosis. C3-C4: There is mild diffuse annular bulge of the disc. The neural foramina are clear bilaterally. T here is no significant spinal canal stenosis. C4-C5: There is broad-based annular bulge of disc. There is mild neural foraminal narrowing bilatera lly. There is mild spinal canal stenosis. C5-C6: Postsurgical changes as above. There is mild neural foraminal narrowing bilaterally. C6-C7: Postsurgical changes as above. There is no significant spinal canal stenosis. C7-T1: No significant abnormalities identified. CONCLUSION: Postsurgical changes as above. Degenerative disc disease above the fusion with mild stenosis at C4-C5. Limited examination secondary to motion. Electronically signed by: Edison Melchor MD 02/08/2018 1:50 PM EDT
[2018-02-08 18:03] LABS: Hemoglobin A1c 5.2 % (4.3-6.0)
--- NOTE | 2018-02-08 22:01 | P.DS ---
Date of admission: 02/07/18 14:17 Primary care physician: Sommer Trent MD Brief History from admission: This is a 78-year-old female with a history of chronic neck and lower back pain , chronic dermatitis, constipation, fatigue and vitamin D deficiency. She was brought in by [facility] because of strokelike symptoms. History is taken from patient and her niece. She is having difficulty providing history because of expressive aphasia. It started 2 weeks ago when she fell and complained of increased neck and left arm pain. She was seen by her pain management physician and her morphine was increased. Since then she was noted having intermittent word finding difficulty and slurred speech. Yesterday she fell again and was unable to get up. She was found by her niece on the floor. She has chronic numbness of the left upper and left lower extremities. She had transient difficulty swallowing while she was wearing the cervical collar. At the time of my examination, she was able to drink water without difficulty. Denies appreciate any focal weakness. Stroke workup revealed head CT and head MRI without acute stroke but has mild microvascular ischemic demyelinating change. She also has acute kidney injury likely secondary to rhabdomyolysis and has been started on IV fluids. She also has leukocytosis and abnormal urinalysis and patient is complaining of urgency and chronic urinary incontinence. All other systems reviewed negative DS: Medications - Discharge Medications Prescriptions: morphine 30 mg PO Q12HR #4 tab DS: Summary Hospital Course: Physical Exam DC date : 02/10/18 This is a 78-year-old female with a history of chronic neck and lower back pain , chronic dermatitis, constipation, fatigue and vitamin D deficiency. She was brought in by [facility] because of strokelike symptoms. Intermittent expressive aphasia and slurred speech with falls. Stroke workup revealed head CT and head MRI without acute stroke but has mild microvascular ischemic demyelinating change. EKG tracing interpreted by me with sinus rhythm. This could be multifactorial. Differential diagnosis: TIA versus medication effect (morphine) versus metabolic encephalopathy versus infection. Continue aspirin, neurochecks, telemetry monitoring and stroke workup which will include echocardiogram and carotid ultrasound. Consult neurology, appreciate recommendations. Limit PT, OT and ST MRI without acute changes Neuro recommends limiting narcotics and Benzos. Discussed with the patient and her niece at bedside. Patient has an appointment coming on this Wednesday with her pain management and she is on tapering down on meds by her pain management Dr lacey. Adviced to follow up as OP Acute on chronic neck pain with left upper extremity radiculopathy. Cervical spine CT without acute findings. Restart Flexeril and continue pain management with Lortab and IV morphine as needed. Will hold scheduled MS Contin secondary to above. Acute kidney injury likely secondary to rhabdomyolysis and NSAID use. Nonoliguric. Continue IV hydration and avoid nephrotoxins UTI suspected sepsis. Start Rocephin and follow culture Pulmonary nodule. Obtain chest CT which should also evaluate the thoracic spine as she has mid thoracic spine tenderness DVT prophylaxis with SCD and subcu heparin Discussed Condition With: pt and niece at bedside Discharge Planning: HHC vs rehab Improving, DC to SNF in stable condition to follow up as OP with PCP and consultants Patient follows with pain management at DC who is also tapering down pain meds - Time Spent with Patient Total time spent providing and/or coordinating discharge services: Greater than 30 minutes Exam Vital signs: Vital Signs 02/07/18 23:15 02/08/18 00:00 02/08/18 04:00 Temperature 97.7 F 97.6 F Pulse Rate 80 80 84 Respiratory Rate 18 18 Blood Pressure 121/59 L 130/60 Pulse Oximetry 95 96 02/08/18 08:00 02/08/18 08:30 02/08/18 12:00 Temperature 98.2 F 98.0 F Pulse Rate 72 84 Respiratory Rate 20 18 Blood Pressure 154/91 H 135/65 Pulse Oximetry 97 93 L 94 L 02/08/18 16:00 02/08/18 20:00 Temperature 98.4 F 98.0 F Pulse Rate 69 75 Respiratory Rate 19 18 Blood Pressure 134/63 146/65 H Pulse Oximetry 93 L 97 Intake & Output 02/08/18 02/08/18 02/09/18 06:59 18:59 06:59 Intake Total 2099 1000 / 1000 Balance 2099 1000 / 1000 Weight 82.5 kg Intake: IV 2099 1000 / 1000 NS Inj 1,000 ML @ 100 mls/hr IV 1999 / 1999 1000 / 1000 .CONT .Q10H [facility] Rx#:[id number] Rocephin Inj 1,000 MG In NS Inj 100 / 100 100 ML @ 200 mls/hr IV.SIG Q24H [facility] Rx#:[id number] Other: # Voids 1 # Bowel Movements 1 Narrative: GENERAL: Pleasant 78 yo F, well-developed and well-nourished in not acute distress CARDIOVASCULAR: Regular rate and rhythm. RESPIRATORY: No accessory muscle use. Clear to auscultation. Breath sounds equal bilaterally. GASTROINTESTINAL: Abdomen soft, non-tender, nondistended. MUSCULOSKELETAL: Extremities without clubbing, cyanosis, or edema. No obvious deformities. Tender mid thoracic spine NEUROLOGICAL: Awake and alert. No obvious cranial nerve deficits. Motor grossly within normal limits. Five out of 5 muscle strength in the arms and legs. Normal speech. Results Procedures completed during hospitalization: no procedures Labs on day of discharge: Labs from last 24 hours 02/08/18 02/08/18 02/08/18 17:00 10:54 08:27 WBC 7.6 D RBC 3.95 L Hgb 10.9 L Hct 32.7 L MCV 82.8 MCH 27.6 MCHC 33.3 RDW 14.5 Plt Count 229 MPV 8.2 Neut % (Auto) 68.0 Lymph % (Auto) 19.3 [place] % (Auto) 7.7 Eos % (Auto) 4.7 H Baso % (Auto) 0.3 Neut # (Auto) 5.2 Lymph # (Auto) 1.5 [place] # (Auto) 0.6 Eos # (Auto) 0.4 Baso # (Auto) 0.0 WBC Differential . Differential Comment Auto diff final Sodium Potassium Chloride Carbon Dioxide Anion Gap BUN Creatinine Estimated GFR POC Glucose 122 H 122 H Random Glucose Hemoglobin A1c Calcium Total Bilirubin AST ALT Alkaline Phosphatase Total Creatine Kinase CK-MB (CK-2) CK-MB (CK-2) % Total Protein Albumin Triglycerides Cholesterol LDL Cholesterol, Calc HDL Cholesterol Cholesterol/HDL Ratio 02/08/18 02/08/18 02/08/18 08:27 08:27 07:46 WBC RBC Hgb Hct MCV MCH MCHC RDW Plt Count MPV Neut % (Auto) Lymph % (Auto) [place] % (Auto) Eos % (Auto) Baso % (Auto) Neut # (Auto) Lymph # (Auto) [place] # (Auto) Eos # (Auto) Baso # (Auto) WBC Differential Differential Comment Sodium 142 Potassium 4.0 Chloride 109 H Carbon Dioxide 27.0 Anion Gap 6 BUN 17 Creatinine 0.72 Estimated GFR 78 L POC Glucose 94 Random Glucose 92 Hemoglobin A1c 5.2 Calcium 8.2 L Total Bilirubin 0.3 AST 48 H ALT 27 Alkaline Phosphatase 96 Total Creatine Kinase 971 H CK-MB (CK-2) 10.3 H CK-MB (CK-2) % 1.1 Total Protein 6.1 L D Albumin 2.8 L Triglycerides 179 H Cholesterol 171 LDL Cholesterol, Calc 100 H HDL Cholesterol 35.7 L Cholesterol/HDL Ratio 4.78 Preliminary micro results at discharge 02/07/18 13:17 Urine Culture - Preliminary Catheterized Urine No growth in 24 hours - Impressions ITS Impressions Carotid Doppler Study 02/07/18 00:00 CONCLUSION: 1. Right Internal Carotid Artery: Mild visible plaque without hemodynamically significant stenosis. 2. Left Internal Carotid Artery: Mild visible plaque without hemodynamically significant stenosis. Chest CT 02/07/18 00:00 CONCLUSION: 1. Focal lingular segment consolidation. Differential diagnosis includes focal pneumonia or aspiration. 2. Esophageal motility disorder with mild dilatation and air-fluid level present. 3. Mild coronary calcifications. Cervical Spine CT 02/07/18 11:31 CONCLUSION: 1. The patient is fused from C5 down to T1. The fusion is solid. 2. Severe degenerative changes at C2/3, C3/4 and C4/5. 3. Moderate degenerative changes in the atlantodens joint. 4. No acute cervical fracture identified. Chest X-Ray 02/07/18 11:31 CONCLUSION: Left lung nodule possibly cavitary. CT chest recommended. Head CT 02/07/18 11:31 CONCLUSION: 1. No acute abnormality is seen. 2. Mild decreased density in the periventricular white matter likely secondary to small vessel ischemic change. . Head MRI 02/07/18 13:18 CONCLUSION: 1. There are some punctate areas of increased T2 signal in the white matter most consistent with mild microvascular ischemic demyelinative change. No significant abnormal T2 signal is identified. 2. No findings to indicate acute cortical infarction are seen on the diffusion restricted imaging. Cervical Spine MRI 02/08/18 08:45 CONCLUSION: Postsurgical changes as above. Degenerative disc disease above the fusion with mild stenosis at C4-C5. Limited examination secondary to motion. Discharge Plan - Discharge Disposition Patient Disposition: Discharge to SNF - Discharge Condition Condition: Stable - Discharge Order Discharge Orders: Discharge Order (Routine); Ordered 02/09/18 Ordered By: Pura Borrero - Discharge Details Anticipated Discharge Date: 02/09/18 - Physicians Team Primary Care Provider: Sommer Trent Attending Provider: Pura Borrero Other Providers: Abiodun Liao MD ; Carmen Etienne MD ; [facility], Agency ; [facility],Agency ; [employer]
--- NOTE | 2018-02-08 22:35 | ECHRPT ---
Indication: CVA/TIA CONCLUSIONS The left ventricular systolic function is normal with an estimated ejection fraction of 55%. Normal left ventricular size. Wall thickness is normal. No regional wall motion abnormalities are present. Trace mitral valve regurgitation. There is trace tricuspid valve regurgitation. The estimated pulmonary arterial pressure is 29 mmHg. BP: / HR: Rhythm: Sinus Technical Quality:Good FINDINGS LEFT VENTRICLE The left ventricular systolic function is normal with an estimated ejection fraction of 55%. Normal left ventricular size. Wall thickness is normal. No regional wall motion abnormalities are present. RIGHT VENTRICLE Normal right ventricular size and systolic function. LEFT ATRIUM The left atrial size is normal. RIGHT ATRIUM The right atrial size is normal. ATRIAL SEPTUM Normal atrial septal thickness without atrial level shunting by limited color doppler interrogation. AORTA The aortic root and proximal ascending aorta are normal in size on limited imaging. MITRAL VALVE Structurally normal mitral valve. Trace mitral valve regurgitation. AORTIC VALVE Trileaflet aortic valve. No aortic valve stenosis or regurgitation. TRICUSPID VALVE Structurally normal tricuspid valve. There is trace tricuspid valve regurgitation. The estimated pulmonary arterial pressure is 29 mmHg. PULMONARY VALVE The pulmonary valve is not well visualized. VESSELS The inferior vena cava is normal in size. PERICARDIUM No pericardial effusion. Salma Dillard MD, FACC (Electronically Signed) Final Date:08 February 2018 22:34
[2018-02-09] MEDS: Sod Chloride 0.9% Inj 1,000 ML IV.CONT SCH ×3 (01:26→22:05)
[2018-02-09] MEDS: Morphine Inj 4 MG/ML Vial IV.PUSH PRN (01:36)
[2018-02-09] MEDS: LORazepam 1 MG Tablet PO PRN ×2 (05:13→17:22)
--- NOTE | 2018-02-09 07:36 | P.PNNEU ---
Subjective Subjective Comments: No acute events reported No headache No chest pain No dyspnea Active Medications: Active Medications Acetaminophen (Tylenol) 650 mg PO Q4H PRN PRN Reason: Temp > 100.4 Acetaminophen (Tylenol) 650 mg PO Q6HR PRN PRN Reason: PAIN SCALE 1 TO 2 Aspirin (Aspirin) 325 mg PO DAILY [facility] Last Admin: 02/08/18 08:34 Dose: 325 mg Bisacodyl (Dulcolax Supp) 10 mg RECTAL DAILY PRN PRN Reason: SEVERE CONSITIPATION Cyclobenzaprine HCl (Flexeril) 10 mg PO TID PRN PRN Reason: Muscle Spasm Dextrose (D50w Vial) 50 ml IV.PUSH UNSCH PRN PRN Reason: PER HYPOGLYCEMIA PROTOCOL Doxycycline Hyclate (Vibramycin) 50 mg PO BID [facility] Last Admin: 02/08/18 22:23 Dose: 50 mg Gabapentin (Neurontin) 600 mg PO TID [facility] Last Admin: 02/08/18 18:13 Dose: 600 mg Glucagon (Glucagon Inj) 1 mg OTHER UNSCH PRN PRN Reason: for Hypoglycemia Protocol Heparin Sodium (Porcine) (Heparin Inj) 5,000 units SQ Q12H [facility] Last Admin: 02/08/18 22:22 Dose: 5,000 units Sodium Chloride (Ns Inj) 1,000 mls @ 100 mls/hr IV.CONT .Q10H [facility] Last Admin: 02/09/18 01:26 Dose: 100 mls/hr Ceftriaxone Sodium 1,000 mg/ (Sodium Chloride) 100 mls @ 200 mls/hr IV.SIG Q24H [facility] Last Infusion: 02/08/18 22:53 Dose: Infused Lactulose (Lactulose Liq) 30 ml PO DAILY PRN PRN Reason: SEVERE CONSITIPATION Lorazepam (Ativan) 1 mg PO Q6HR PRN PRN Reason: Anxiety Last Admin: 02/09/18 05:13 Dose: 1 mg Morphine Sulfate (Morphine Inj) 2 mg IV.PUSH Q3H PRN PRN Reason: BREAKTHROUGH PAIN Last Admin: 02/09/18 01:36 Dose: 2 mg Morphine Sulfate (Msir) 30 mg PO Q12HR [facility] Last Admin: 02/08/18 22:23 Dose: 30 mg Naloxone HCl (Narcan Inj) 0.4 mg IV.PUSH UNSCH PRN PRN Reason: SEE LABEL COMMENTS Ondansetron HCl (Zofran Odt) 4 mg PO Q6H PRN PRN Reason: NAUSEA OR VOMITING Pt:Triamcinolone/ (Dimethicone Cr) 0 each TOPICAL BID [facility] Last Admin: 02/08/18 22:27 Dose: Not Given Senna/Docusate Sodium ([place]-Colace) 1 tab PO BID [facility] Last Admin: 02/08/18 22:23 Dose: 1 tab Sennosides (Senokot) 17.2 mg PO Q12H PRN PRN Reason: Moderate Constipation Sertraline HCl (Zoloft) 100 mg PO BID [facility] Last Admin: 02/08/18 22:23 Dose: 100 mg Sodium Chloride (Ns Flush) 2 ml IV.FLUSH BID [facility] Last Admin: 02/08/18 22:25 Dose: 2 ml Sodium Chloride (Ns Flush) 2 ml IV.FLUSH PRN PRN PRN Reason: FLUSH AFTER USING IV ACCESS Allergies/Adverse Reactions: Allergies Allergy/AdvReac Type Severity Reaction Status Date / Time latex Allergy Severe Rash Verified 02/07/18 11:11 acyclovir Allergy Mild RASH Verified 02/07/18 11:11 bacitracin Allergy Mild RASH Verified 02/07/18 11:11 gramicidin D Allergy Mild RASH Verified 02/07/18 11:11 neomycin Allergy Mild RASH Verified 02/07/18 11:11 polymyxin B Allergy Mild RASH Verified 02/07/18 11:11 Review of Systems All other systems reviewed negative except as stated in HPI Physical Exam Vital signs: Vital Signs 02/08/18 08:00 02/08/18 08:30 02/08/18 12:00 Temperature 98.2 F 98.0 F Pulse Rate 72 84 Respiratory Rate 20 18 Blood Pressure 154/91 H 135/65 Pulse Oximetry 97 93 L 94 L 02/08/18 16:00 02/08/18 20:00 02/08/18 21:30 Temperature 98.4 F 98.0 F Pulse Rate 69 75 72 Respiratory Rate 19 18 Blood Pressure 134/63 146/65 H Pulse Oximetry 93 L 97 02/09/18 00:00 02/09/18 02:00 02/09/18 04:00 Temperature 98.1 F 97.6 F Pulse Rate 76 72 Respiratory Rate 18 16 18 Blood Pressure 153/79 H 185/85 H Pulse Oximetry 99 98 02/09/18 04:23 02/09/18 05:48 Temperature Pulse Rate 79 Respiratory Rate 16 Blood Pressure 168/80 H Pulse Oximetry Intake & Output 02/08/18 02/09/18 02/09/18 18:59 06:59 18:59 Intake Total 1000 / 1000 1100 / 1100 Balance 1000 / 1000 1100 / 1100 Weight 82.5 kg Intake: IV 1000 / 1000 1100 / 1100 NS Inj 1,000 ML @ 100 mls/hr IV 1000 / 1000 1000 / 1000 .CONT .Q10H [facility] Rx#:[id number] Rocephin Inj 1,000 MG In NS Inj 100 / 100 100 ML @ 200 mls/hr IV.SIG Q24H [facility] Rx#:[id number] Other: # Voids 1 Narrative: GENERAL: Pleasant 78 yo F, well-developed and well-nourished in not acute distress CARDIOVASCULAR: Regular rate and rhythm. RESPIRATORY: No accessory muscle use. Clear to auscultation. Breath sounds equal bilaterally. GASTROINTESTINAL: Abdomen soft, non-tender, nondistended. MUSCULOSKELETAL: Extremities without clubbing, cyanosis, or edema. No obvious deformities. Tender mid thoracic spine NEUROLOGICAL: Awake and alert. Oriented 3, no aphasia, visual gamble full, no facial asymmetry, no obvious cranial nerve deficits. Some reduced range of motion left shoulder Five out of 5 muscle strength in the arms and legs. Gait not assessed active fall risk, pinprick intact no neglect - Constitutional no acute distress - Routine HEENT Exam Head: Present: normocephalic Eye: Present: EOMI Objective Laboratory Results - last 24 hr 02/08/18 02/08/18 02/08/18 07:46 08:27 08:27 WBC RBC Hgb Hct MCV MCH MCHC RDW Plt Count MPV Neut % (Auto) Lymph % (Auto) [place] % (Auto) Eos % (Auto) Baso % (Auto) Neut # (Auto) Lymph # (Auto) [place] # (Auto) Eos # (Auto) Baso # (Auto) WBC Differential Differential Comment Sodium 142 Potassium 4.0 Chloride 109 H Carbon Dioxide 27.0 Anion Gap 6 BUN 17 Creatinine 0.72 Estimated GFR 78 L POC Glucose 94 Random Glucose 92 Hemoglobin A1c 5.2 Calcium 8.2 L Total Bilirubin 0.3 AST 48 H ALT 27 Alkaline Phosphatase 96 Total Creatine Kinase 971 H CK-MB (CK-2) 10.3 H CK-MB (CK-2) % 1.1 Total Protein 6.1 L D Albumin 2.8 L Triglycerides 179 H Cholesterol 171 LDL Cholesterol, Calc 100 H HDL Cholesterol 35.7 L Cholesterol/HDL Ratio 4.78 02/08/18 02/08/18 02/08/18 08:27 10:54 17:00 WBC 7.6 D RBC 3.95 L Hgb 10.9 L Hct 32.7 L MCV 82.8 MCH 27.6 MCHC 33.3 RDW 14.5 Plt Count 229 MPV 8.2 Neut % (Auto) 68.0 Lymph % (Auto) 19.3 [place] % (Auto) 7.7 Eos % (Auto) 4.7 H Baso % (Auto) 0.3 Neut # (Auto) 5.2 Lymph # (Auto) 1.5 [place] # (Auto) 0.6 Eos # (Auto) 0.4 Baso # (Auto) 0.0 WBC Differential . Differential Comment Auto diff final Sodium Potassium Chloride Carbon Dioxide Anion Gap BUN Creatinine Estimated GFR POC Glucose 122 H 122 H Random Glucose Hemoglobin A1c Calcium Total Bilirubin AST ALT Alkaline Phosphatase Total Creatine Kinase CK-MB (CK-2) CK-MB (CK-2) % Total Protein Albumin Triglycerides Cholesterol LDL Cholesterol, Calc HDL Cholesterol Cholesterol/HDL Ratio 02/09/18 01:30 WBC RBC Hgb Hct MCV MCH MCHC RDW Plt Count MPV Neut % (Auto) Lymph % (Auto) [place] % (Auto) Eos % (Auto) Baso % (Auto) Neut # (Auto) Lymph # (Auto) [place] # (Auto) Eos # (Auto) Baso # (Auto) WBC Differential Differential Comment Sodium Potassium Chloride Carbon Dioxide Anion Gap BUN Creatinine Estimated GFR POC Glucose 111 H Random Glucose Hemoglobin A1c Calcium Total Bilirubin AST ALT Alkaline Phosphatase Total Creatine Kinase CK-MB (CK-2) CK-MB (CK-2) % Total Protein Albumin Triglycerides Cholesterol LDL Cholesterol, Calc HDL Cholesterol Cholesterol/HDL Ratio Microbiology 02/07/18 13:17 Urine Culture - Preliminary Catheterized Urine No growth in 24 hours Review/Management - Diagnosis (1) TIA (transient ischemic attack) Code(s): G45.9 - Transient cerebral ischemic attack, unspecified Status: Acute Current Visit: Yes (2) Chronic pain disorder Code(s): G89.4 - Chronic pain syndrome Status: Acute Current Visit: Yes (3) Kidney injury Code(s): S37.009A - Unspecified injury of unspecified kidney, initial encounter Status: Acute Current Visit: Yes (4) Cervical spine disease Code(s): M48.9 - Spondylopathy, unspecified Status: Acute Current Visit: Yes - Review/Management Plan: Not certain she had a TIA. Possibly related to increase use of opiate medication in combination with dehydration. Recommendations Neuro stable CK declining PT evaluation MRI C-spine; demonstrates spondylitic changes no cord lesion She should limit opiate use Discharge planning. Can follow-up with us in the outpatient setting (1) TIA (transient ischemic attack) Qualifiers: Transient cerebral ischemia type: unspecified Qualified Code(s): G45.9 - Transient cerebral ischemic attack, unspecified (3) Kidney injury Qualifiers: Encounter type: initial encounter Laterality: unspecified laterality Qualified Code(s): S37.009A - Unspecified injury of unspecified kidney, initial encounter
[2018-02-09] MEDS: Gabapentin 300 MG Capsule PO SCH ×3 (08:42→17:22)
[2018-02-09] MEDS: Aspirin 325 MG Tablet PO SCH (08:43)
[2018-02-09] MEDS: Heparin - SQ 10,000 UNITS/ML Vial SQ SCH ×2 (08:43→22:07)
[2018-02-09] MEDS: Sertraline 100 MG Tablet PO SCH ×2 (08:43→22:08)
[2018-02-09] MEDS: Senna/Docusate Sodium 8.6/50 MG Tablet PO SCH ×2 (08:43→22:09)
[2018-02-09] MEDS: Morphine Sulfate 15 MG IR Tablet PO SCH ×2 (08:44→22:08)
[2018-02-09] MEDS: DIMETHICONE TOPICAL SCH ×2 (10:59→22:09)
[2018-02-09] MEDS: TRIAMCINOLONE TOPICAL SCH ×2 (10:59→22:09)
--- NOTE | 2018-02-09 19:04 | P.PN ---
Physical Exam Vital signs: Vital Signs 02/08/18 20:00 02/08/18 21:30 02/09/18 00:00 Temperature 98.0 F 98.1 F Pulse Rate 75 72 76 Respiratory Rate 18 18 Blood Pressure 146/65 H 153/79 H Pulse Oximetry 97 99 02/09/18 02:00 02/09/18 04:00 02/09/18 04:23 Temperature 97.6 F Pulse Rate 72 79 Respiratory Rate 16 18 Blood Pressure 185/85 H 168/80 H Pulse Oximetry 98 02/09/18 05:48 02/09/18 07:40 02/09/18 08:00 Temperature 97.4 F L Pulse Rate 83 69 Respiratory Rate 16 12 Blood Pressure 159/74 H Pulse Oximetry 96 02/09/18 12:00 02/09/18 16:00 Temperature 98 F 97.9 F Pulse Rate 66 70 Respiratory Rate 18 18 Blood Pressure 165/76 H 154/77 H Pulse Oximetry 95 95 Intake & Output 02/09/18 02/09/18 02/10/18 06:59 18:59 06:59 Intake Total 1100 / 1100 200 / 200 Balance 1100 / 1100 200 / 200 Weight 82.5 kg Intake: IV 1100 / 1100 200 / 200 NS Inj 1,000 ML @ 100 mls/hr IV 1000 / 1000 200 / 200 .CONT .Q10H [facility] Rx#:[id number] Rocephin Inj 1,000 MG In NS Inj 100 / 100 100 ML @ 200 mls/hr IV.SIG Q24H [facility] Rx#:[id number] Other: # Voids 1 1 Date of Last Bowel Movement 02/09/18 # Bowel Movements 1 Narrative: Subjective: Patient is in nad Improving. No events overnight PT recommends rehab . CM is ff for DCplan Physical Exam GENERAL: Pleasant 78 yo F, well-developed and well-nourished in not acute distress CARDIOVASCULAR: Regular rate and rhythm. RESPIRATORY: No accessory muscle use. Clear to auscultation. Breath sounds equal bilaterally. GASTROINTESTINAL: Abdomen soft, non-tender, nondistended. MUSCULOSKELETAL: Extremities without clubbing, cyanosis, or edema. No obvious deformities. Tender mid thoracic spine NEUROLOGICAL: Awake and alert. No obvious cranial nerve deficits. Motor grossly within normal limits. Five out of 5 muscle strength in the arms and legs. Normal speech. Assessment and Plan This is a 78-year-old female with a history of chronic neck and lower back pain , chronic dermatitis, constipation, fatigue and vitamin D deficiency. She was brought in by [facility] because of strokelike symptoms. Intermittent expressive aphasia and slurred speech with falls. Stroke workup revealed head CT and head MRI without acute stroke but has mild microvascular ischemic demyelinating change. EKG tracing interpreted by me with sinus rhythm. This could be multifactorial. Differential diagnosis: TIA versus medication effect (morphine) versus metabolic encephalopathy versus infection. Continue aspirin, neurochecks, telemetry monitoring and stroke workup which will include echocardiogram and carotid ultrasound. Consult neurology, appreciate recommendations. Limit PT, OT and ST MRI without acute changes Neuro recommends limiting narcotics and Benzos. Discussed with the patient and her niece at bedside. Patient has an appointment coming on this Wednesday with her pain management and she is on tapering down on meds by her pain management Dr lacey. Adviced to follow up as OP Acute on chronic neck pain with left upper extremity radiculopathy. Cervical spine CT without acute findings. Restart Flexeril and continue pain management with Lortab and IV morphine as needed. Will hold scheduled MS Contin secondary to above. Acute kidney injury likely secondary to rhabdomyolysis and NSAID use. Nonoliguric. Continue IV hydration and avoid nephrotoxins UTI suspected sepsis. Start Rocephin and follow culture Pulmonary nodule. Obtain chest CT which should also evaluate the thoracic spine as she has mid thoracic spine tenderness DVT prophylaxis with SCD and subcu heparin Discussed Condition With: pt and niece at bedside Discharge Planning: HHC vs rehab Improving, DC to SNF in stable condition to follow up as OP with PCP and consultants Patient follows with pain management at DC who is also tapering down pain meds Results - Labs CBC & Chem 7: 02/08/18 08:27 02/08/18 08:27 Laboratory Results - last 24 hr 02/08/18 02/09/18 02/09/18 08:27 01:30 08:41 POC Glucose 111 H 92 Hemoglobin A1c 5.2 02/09/18 17:15 POC Glucose 93 Hemoglobin A1c Microbiology 02/07/18 13:17 Catheterized Urine Urine Culture - Final No growth in 48 hours - Procedures no procedures
[2018-02-10] MEDS: Sod Chloride 0.9% Inj 1,000 ML IV.CONT SCH (02:37)
[2018-02-10] MEDS: LORazepam 1 MG Tablet PO PRN ×2 (04:50→13:27)
[2018-02-10] MEDS: Heparin - SQ 10,000 UNITS/ML Vial SQ SCH (09:48)
[2018-02-10] MEDS: Aspirin 325 MG Tablet PO SCH (09:49)
[2018-02-10] MEDS: Gabapentin 300 MG Capsule PO SCH ×2 (09:49→13:27)
[2018-02-10] MEDS: Morphine Sulfate 15 MG IR Tablet PO SCH (09:50)
[2018-02-10] MEDS: Sertraline 100 MG Tablet PO SCH (09:50)
[2018-02-10] MEDS: Senna/Docusate Sodium 8.6/50 MG Tablet PO SCH (09:50)
[2018-02-10] MEDS: TRIAMCINOLONE TOPICAL SCH (09:51)
[2018-02-10] MEDS: DIMETHICONE TOPICAL SCH (09:51)
--- NOTE | 2018-02-10 16:35 | P.CONREH ---
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 / EMT - Medical History Medical History: Medical History (Last Reviewed 02/09/18 @ 09:22 by Lexi Marcos) Chronic back pain Degenerative disc disease, cervical Frequent UTI - Surgical History Surgical History: Surgical History (Last Reviewed 02/09/18 @ 09:22 by Lexi Marcos) History of back surgery History of cholecystectomy Hx of fusion of cervical spine - Family History Family History: Family History (Last Reviewed 02/09/18 @ 09:22 by Lexi Marcos) Other CVA (cerebral vascular accident) - Tobacco History Smoking Status: Never smoker - Alcohol History How Often Do You Have a Drink Containing Alcohol: Never - Substance Use History Substance History: No History of Abuse - Travel History Recent Travel in the [facility] Within the Last 8 Weeks: No Recent Travel Out of the Country Within the Last 8 Weeks: No - Immunization History Tetanus Immunization: Unsure Hx Influenza Vaccine This Season: Unable to Assess Medications and Allergies Allergies Allergy/AdvReac Type Severity Reaction Status Date / Time latex Allergy Severe Rash Verified 02/07/18 11:11 acyclovir Allergy Mild RASH Verified 02/07/18 11:11 bacitracin Allergy Mild RASH Verified 02/07/18 11:11 gramicidin D Allergy Mild RASH Verified 02/07/18 11:11 neomycin Allergy Mild RASH Verified 02/07/18 11:11 polymyxin B Allergy Mild RASH Verified 02/07/18 11:11 Home Medications Medication Instructions Recorded Confirmed Type cyclobenzaprine 10 mg PO TID PRN 02/07/18 02/07/18 History docusate sodium 100 mg PO DAILY 02/07/18 02/07/18 History doxycycline hyclate 50 mg PO BID 02/07/18 02/07/18 History gabapentin 600 mg PO TID 02/07/18 02/07/18 History ondansetron 4 mg PO BID PRN 02/07/18 02/07/18 History sertraline 100 mg PO BID 02/07/18 02/07/18 History triamcinolone-dimethicone 1 applic TOPICAL BID 02/07/18 02/07/18 History Exam - Physical Examination Vital Signs / I&O: Vital Signs 02/09/18 20:00 02/10/18 00:00 02/10/18 04:00 Temperature 97.3 F L 98.2 F 98.3 F Pulse Rate 68 68 70 Respiratory Rate 17 16 16 Blood Pressure 207/93 H 184/86 H 181/81 H Pulse Oximetry 98 97 93 L 02/10/18 08:16 02/10/18 12:46 Temperature 97.8 F 97.9 F Pulse Rate 69 79 Respiratory Rate 16 18 Blood Pressure 173/77 H 161/71 H Pulse Oximetry 95 92 L Intake & Output 02/09/18 02/10/18 02/10/18 18:59 06:59 18:59 Intake Total 200 / 200 Output Total 1300 / 1300 Balance 200 / 200 -1300 / -1300 Intake: IV 200 / 200 NS Inj 1,000 ML @ 100 mls/hr IV 200 / 200 .CONT .Q10H [facility] Rx#:[id number] Output: Urine 1300 / 1300 Other: # Voids 1 Date of Last Bowel Movement 02/09/18 02/09/18 # Bowel Movements 1 Intake & Output 02/08/18 02/09/18 02/10/18 02/11/18 06:59 06:59 06:59 06:59 Intake Total 2600 / 2600 2100 / 2100 200 / 200 Output Total 1300 / 1300 Balance 2600 / 2600 2100 / 2100 -1100 / -1100 Weight 82.5 kg 82.5 kg Date of Last Bowel Movement: 02/09/18 Results - Labs CBC & Chem 7: 02/08/18 08:27 02/08/18 08:27 Labs: Laboratory Results - last 24 hr 02/09/18 02/09/18 17:15 22:05 POC Glucose 93 91 Assessment and Plan - Plan Consult received per stroke order set. EMR reviewed. MRI negative for acute stroke. Neurology consult reviewed and indicates TIA. Consult deferred due to no acute stroke. Please reconsult as appropriate. Thank you.
== END 2018-02-10 15:24 ==
LOC: NEPC 10:54 → NEDA 14:17 → N05 19:20
PROVIDERS: ADMIT Hospitalist; ATTEND Hospitalist